=== PATIENT | male | born 1945 | race Caucasian/White ===

== ENCOUNTER 2018-01-01 02:13 | Inpatient (IN) | payer OTHER ==
[~2018-01-01] VITALS: Ht 172.7 cm; Wt 78.0 kg
[2018-01-01] VITALS (9 sets, daily range): BP systolic 115–165; BP diastolic 51–98
--- NOTE | 2018-01-01 02:13 | NUR ---
PT UMA[facility] BLS. TAKEN TO BED 10
[2018-01-01] MEDS ORDERED: NACL 0.9% 1,000 ML IV ONE (02:20)
--- NOTE | 2018-01-01 02:23 | NUR ---
Dr. Nieto evaluating patient at bedside.
--- NOTE | 2018-01-01 02:30 | NUR ---
UMAIR EVANS [place] FOR C/O URINARY RETENTION PER STAFF. NO N/V/D; SKIN IS PINK/WARM/DRY; AAOX4; LUNGS CLEAR BL; HR EVEN AND REGULAR; NO FEVER, CP, SOB, OR COUGH AT THIS TIME; NO PAIN NOTED AT THIS TIME. PATIENT POSITIONED FOR COMFORT; HOB ELEVATED; BEDRAILS UP X2; BED DOWN.
[2018-01-01 02:37] LABS: HEMATOCRIT 39.3 % (36-52); HEMOGLOBIN 13.1 g/dL (12.0-18.0); MEAN CORPUSCULAR HEMOGLOBIN 31 pg (27-31); MEAN CORPUSCULAR HGB CONC 34 g/dL (33-37); MEAN CORPUSCULAR VOLUME 91.3 fL (80-94); PLATELET COUNT (AUTO) 294 K/uL (140-450); RED CELL DISTRIBUTION WIDTH 12.9 % (11.6-13.7); WHITE BLOOD COUNT (AUTO) 12.9 K/uL (4.8-10.8)
[2018-01-01 02:38] LABS: BASOPHILS # (AUTO) 0.1 K/uL (0.00-0.22); BASOPHILS % (AUTO) 0.5 % (0.0-2.0); LYMPHOCYTES # (AUTO) 1.5 K/uL (2.0-11.5); LYMPHOCYTES % (AUTO) 11.3 % (20.5-51.1); MONOCYTES # (AUTO) 1.7 K/uL (0.8-1.0); MONOCYTES % (AUTO) 13.3 % (1.7-9.3); NEUTROPHILS # (AUTO) 9.6 K/uL (1.8-7.7); NEUTROPHILS % (AUTO) 74.9 % (42.2-75.2)
[2018-01-01] MEDS ORDERED: NACL 0.9% 500 ML IV ONE (02:40)
[2018-01-01 02:56] LABS: APPEARANCE,URINE SL CLOUDY (CLEAR); BILIRUBIN,URINE NEGATIVE (NEGATIVE); BLOOD, URINE 2+ (NEGATIVE); COLOR,URINE YELLOW (YELLOW); LEUKOCYTE ESTERASE ,URINE NEGATIVE (NEGATIVE); NITRITE, URINE NEGATIVE (NEGATIVE); UGLUCOSE TRACE (NEGATIVE)
[2018-01-01] MEDS ORDERED: ALPOS OP (03:01)
[2018-01-01] MEDS ORDERED: HYDR-5122 PO (03:01)
[2018-01-01] MEDS ORDERED: DIVA125E1 PO (03:01)
[2018-01-01] MEDS ORDERED: LISI5TAB18 PO (03:01)
[2018-01-01] MEDS ORDERED: HYDR100T79 PO (03:01)
[2018-01-01] MEDS ORDERED: LACT10SO1 PO (03:01)
[2018-01-01] MEDS ORDERED: CLON0.1T42 PO (03:01)
[2018-01-01] MEDS ORDERED: INSU100S5 SUBQ (03:01)
[2018-01-01] MEDS ORDERED: MIRABULK PO (03:01)
[2018-01-01] MEDS ORDERED: KEP500L PO (03:01)
[2018-01-01] MEDS ORDERED: MULT-1305 PO (03:01)
[2018-01-01] MEDS ORDERED: ASPI81CT89 PO (03:01)
[2018-01-01] MEDS ORDERED: ATOR40TA PO (03:01)
[2018-01-01] MEDS ORDERED: METF850T PO (03:01)
[2018-01-01] MEDS ORDERED: ESOM40EC PO (03:01)
[2018-01-01 03:09] LABS: RBC,URINE 3-10 (FEW) /HPF (0-5); WBC,URINE 0-5 (RARE) /HPF (0-5)
[2018-01-01 03:12] LABS: ALBUMIN 3.3 g/dL (3.4-5.0); ANION GAP 28.9 (8-16); CARBON DIOXIDE 15.6 mmol/L (21-32); TOTAL BILIRUBIN 0.4 mg/dL (0.0-1.0)
[2018-01-01 03:18] LABS: CREATININE 10.7 mg/dL (0.7-1.3); POTASSIUM 8.5 mmol/L (3.5-5.1)
[2018-01-01] MEDS ORDERED: CALCIUM CHLORIDE 10% 100 MG/ML SYR IVP ONE (03:20)
[2018-01-01] MEDS ORDERED: SODIUM BICARBONATE 8.4% PFS 50 MEQ/50 ML SYR IVP ONE (03:20)
[2018-01-01] MEDS ORDERED: DEXTROSE 50% 50 ML SYR IVP ONE (03:20)
[2018-01-01] MEDS ORDERED: INSULIN REGULAR, HUMAN 100 UNIT/ML VIAL SUBQ ONE (03:20)
[2018-01-01] MEDS ORDERED: ASPIRIN 81 MG TAB.CHEW PO ONE (03:20)
[2018-01-01 03:35] LABS: PROTHROMBIN TIME 9.2 secs (10.8-13.4)
[2018-01-01] MEDS ORDERED: NACL 0.9% 2,000 ML IV ONE (03:35)
--- NOTE | 2018-01-01 04:00 | NUR ---
Patient appears to be resting comfortably in bed. Vital Signs within normal limits. Respirations even and unlabored.
[2018-01-01] MEDS ORDERED: NACL 0.9% 1,000 ML IV SCH (04:16)
[2018-01-01] MEDS ORDERED: ACETAMINOPHEN 325 MG TAB PO PRN (04:20)
[2018-01-01] MEDS ORDERED: ONDANSETRON 4 MG/2 ML VIAL IVP PRN (04:20)
--- NOTE | 2018-01-01 04:20 | NUR ---
[facility] HOUSE SUP JOSÉ MIGUEL SAID "TO HOLD PT IN ER UNTIL 7AM. THEN OK TO GO ICU." ER MD DR BUSH AND RIKY MA NOTIFIED.
[2018-01-01] MEDS ORDERED: SODIUM POLYSTYRENE 15 GM/60 ML UDBTL PO SCH ×4 (05:30→17:00)
[2018-01-01] MEDS: MORPHINE SULFATE 2 MG/ML SYR IVP PRN (05:40)
--- NOTE | 2018-01-01 05:40 | NUR ---
PT APPEARS AGITATED, MOANING AND MAKING NOISES. BP ELEVATED. PAIN MEDICATION GIVEN, PT TOLERATED WELL.
--- NOTE | 2018-01-01 07:15 | NUR ---
PER REPORT FROM RIKY MA " I ALREADY GAVE REPORT TO THE ICU NURSE SO SHE IS TAKING OVER CARE AT THIS TIME BECAUSE OF WHAT HAPPEN THIS MORNING, PATIENT CAN NOT BE TRANSFERRED TO ICU YET".
--- NOTE | 2018-01-01 07:16 | NUR ---
ICU NURSE RIKY LEBRON AT [facility] AT THIS TIME.
--- NOTE | 2018-01-01 07:25 | NUR ---
Received bedside report from ED nurse. patient is nonverbal and unable to follow commands. periods of calm and sleeping however arouse to stimuli. 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 skin intact and warm to touch. peripheral IV line to left forearm and patent & intact. Rush catheter in place and cloudy yellow urine draining noted. will continue to monitor and follow up on orders.
--- NOTE | 2018-01-01 08:20 | NUR ---
noted small amount of brown color soft stool and provide sahil area care gently. will continue to monitor.
--- NOTE | 2018-01-01 08:23 | NUR ---
Patient will be admitted to care of DR. WELLER . Admited to ICU . Will go to rooM #5. Belongings list completed. Report to RIKY LEBRON .
[2018-01-01] MEDS: BLOOD GLUCOSE MONITORING 1 DEV DEV FS SCH ×4 (08:46→20:39)
--- NOTE | 2018-01-01 08:47 | NUR ---
Dr. Taylor in to see patient and will follow up on orders.
--- NOTE | 2018-01-01 08:51 | NUR ---
PATIENT HAS BEEN SCREENED AND CATEGORIZED HIGH NUTRITION RISK. PATIENT WILL BE SEEN WITHIN 1-2 DAYS OF ADMISSION. 01/01/18 01/02/[address]
--- NOTE | 2018-01-01 09:33 | NUR ---
Gabby Rebollar in to see patient and will follow up on orders.
[2018-01-01] MEDS ORDERED: SODIUM POLYSTYRENE 15 GM/60 ML UDBTL PO ONE (09:35)
[2018-01-01] MEDS ORDERED: SODIUM BICARBONATE 8.4% 50 MEQ/50 ML VIAL INJ SCH (09:44)
--- NOTE | 2018-01-01 09:51 | NUR ---
CM NOTE ADMISSION REVIEW DONE. INITIAL REVIEW FAXED TO [facility] [phone] YANET # [phone].
--- NOTE | 2018-01-01 10:15 | NUR ---
paged Dr. Pierre to clarify new orders and waiting a return call.
[2018-01-01] MEDS ORDERED: SODIUM BICARBONATE 8.4% PFS 50 MEQ/50 ML SYR IVP SCH ×2 (10:20→17:00)
--- NOTE | 2018-01-01 10:30 | NUR ---
clarified new orders with Dr. Pierre and total 45gm of kayexalate to be given. informed pharmacy.
[2018-01-01 10:37] LABS: ANION GAP 25.3 (8-16); CARBON DIOXIDE 16.5 mmol/L (21-32); TOTAL BILIRUBIN 0.4 mg/dL (0.0-1.0)
[2018-01-01 10:43] LABS: CREATININE 9.9 mg/dL (0.7-1.3)
[2018-01-01 10:44] LABS: POTASSIUM 7.8 mmol/L (3.5-5.1)
--- NOTE | 2018-01-01 10:55 | NUR ---
Dr. Taylor was notified of abnormal lab result and will follow up on orders.
[2018-01-01] MEDS: SODIUM BICARBONATE 8.4% 50 MEQ in NACL 0.9% 1,000 ML IV SCH ×2 (10:59→17:22)
[2018-01-01] MEDS: hydrALAZINE 20 MG/ML VIAL IVP PRN (11:07)
--- NOTE | 2018-01-01 11:27 | NUR ---
called radiology dept to informed that CXR result still pending. will continue to follow up.
--- NOTE | 2018-01-01 12:09 | NUR ---
Dr. Elliott in to see patient for exam. will follow up on orders.
--- NOTE | 2018-01-01 12:10 | NUR ---
called Radiology dept and still waiting for CXR result.
--- NOTE | 2018-01-01 12:36 | NUR ---
paged Dr. Elliott regarding CXR result still pending and kayexalate was not able to be given yet as well as tube feeding as ordered. waiting for call back. charge nurse aware.
--- NOTE | 2018-01-01 12:54 | NUR ---
verified the NG-tube placement by 3 nurses at bedside and notified Dr. Elliott. Dr. Elliott stated that okay to use NG-tube. will follow up on orders.
--- NOTE | 2018-01-01 13:00 | NUR ---
Wound nurse came in for evaluation due to jaspal score 12. skin intact and will continue with current plan of care.
--- NOTE | 2018-01-01 13:12 | NUR ---
started tube feeding at 10ml/hr with nepro as ordered and will continue to monitor.
--- NOTE | 2018-01-01 13:22 | NUR ---
WOUND CARE EVALUATION NOTE: REASON FOR EVALUATION: LOW LAUREN SCORE SKIN ASSESSMENT DONE WITH PRIMARY RN ON THIS 72 Y/O MALE PT FROM [facility] TO [facility] WITH CHIEF COMPLAIN OF NO URINE OUTPUT X 16 HOURS, NO OTHER PAST MEDICAL HX AVAILABLE AT THIS TIME. SKIN IS WARM AND DRY, NGT I PLACE, HOB ELEVATED. BLE FEW HAIR GROWTH, NO EDEMA. DORSAL PEDAL PULSES PRESENT AND NORMAL. CAPILLARY REFILLED < 2 SEC. X 10 TOES. F/C PATENT WITH MODERATE AMOUNT OF FER COLOR OUTPUT NOTICE. NO REDNESS, FEW OLD SCRATCH GERMAN TO R/L UPPER THIGHS, SKIN INTACT. PLAN OF CARE DISCUSSED WITH PRIMARY RN. RECOMMENDATIONS -OFFLOAD BILATERAL HEELS BY PLACING PILLOWS UNDER CALVES UNLESS OTHERWISE CONTRAINDICATED -PRESSURE REDISTRIBUTION SURFACE THERAPY -TURN AND REPOSITION Q2H, OFFLOAD SACRALCOCCYX AND BUTTOCKS BY TURNING RIGHT AND LEFT -CONTINUE TO FOLLOW RD RECOMMENDATIONS ALL ABOVE RECOMMENDATIONS DISCUSSED WITH PRIMARY RN.
--- NOTE | 2018-01-01 13:54 | NUR ---
[employer] Note: Per Luz from [facility] , patient is on a 7 day bed hold and is one of their detention patients. Luz stated patient does not have an existing Advance Directive and is not able to make his own medical decisions. Per Luz, patient's niece Liv is patient's family's spokesperson. Luz stated patient's son Boyd works long hours, therefore is not always available. Luz reported Liv consults with Boyd and the rest of family and she verbalizes their medical decisions.
--- NOTE | 2018-01-01 14:39 | NUR ---
Received a call from patient's (Lisa Henderson) and niece. Given updated of patient's condition and per patient's , unknown for the date of pneumococcal and influenza vaccination at this time and will let us know once she found out, as well as she reported that patient was able to eat pureed diet and wheelchair bound, unable to follow commands, only able to verbalize "NO" prior to this hospitalization.
--- NOTE | 2018-01-01 15:04 | NUR ---
01/01/18 RD INITIAL ASSESSMENT COMPLETED PLEASE REFER TO NUTRITION ASSESSMENT UNDER CARE ACTIVITY FOR ESTIMATED NUTRITIONAL NEEDS. RECOMMEND NEPRO WITH CARB STEADY AT 40 ML/HR WATER FLUSH 170 Q4H. -THIS WILL PROVIDE 1750 KCAL AND 78 G PROTEIN AND 1750 ML WATER. THIS WILL PROVIDE 100% OF PTS ESTIMATED ENERGY AND PROTEIN NEEDS. 3. RD TO FOLLOW-UP 2-3 DAYS, HIGH RISK BRIELLE MATSON, RD
[2018-01-01 15:09] LABS: ANION GAP 29.2 (8-16); CARBON DIOXIDE 15.7 mmol/L (21-32)
[2018-01-01 15:36] LABS: CREATININE 9.8 mg/dL (0.7-1.3); POTASSIUM 7.9 mmol/L (3.5-5.1)
--- NOTE | 2018-01-01 15:38 | NUR ---
paged Dr. Elliott regarding critical lab result and waiting a return call.
--- NOTE | 2018-01-01 16:01 | NUR ---
paged Dr. Elliott again and still waiting for call back.
--- NOTE | 2018-01-01 16:20 | NUR ---
PAGED DR. VANN AGAIN REGARDING CRITICAL LAB RESULT. STILL WAITING A RETURN CALL AND CHARGE NURSE AWARE.
--- NOTE | 2018-01-01 16:24 | NUR ---
RECEIVED A CALL FROM DR. VANN AND NOTIFIED OF CRITICAL LAB RESULT INCLUDING K 7.9, BUN 129, Cr 9.8. NO NEW ORDER AT THIS TIME AND DR. VANN STATED THAT NOTIFY DR. FOX WELL. PAGED DR. FOX AND WAITING FOR CALL BACK.
--- NOTE | 2018-01-01 16:30 | NUR ---
CALLED BACK AND WAS NOTIFIED OF CRITICAL LAB RESULT. RECEIVED NEW ORDERS AND WILL FOLLOW UP ON ORDERS.
--- NOTE | 2018-01-01 17:18 | NUR ---
Noted gastric residual 70ml from NG-tube and Large amount of brown color loose stool. Provide sahil care gently.
--- NOTE | 2018-01-01 17:51 | NUR ---
paged Dr. Elliott regarding still have no code status for the patient and waiting a return call.
--- NOTE | 2018-01-01 17:58 | NUR ---
Dr. Paulino for Dr. Elliott called back and notified of no code status yet. Dr. Paulino stated that he is covering for Dr. Elliott but he does not know this patient and can't decide tonight and call Dr. Elliott in the morning for code status. charge nurse aware and it will be endorsed to next shift.
--- NOTE | 2018-01-01 18:26 | NUR ---
NOTED LARGE AMOUNT OF BROWN LOOSE STOOL AND PROVIDED ALEX CARE GENTLY. WILL CONTINUE TO MONITOR.
--- NOTE | 2018-01-01 19:19 | NUR ---
RECEIVED REPORT FROM AM SHIFT. AFEBRILE. PT NONVERBAL. UNABLE TO FOLLOW COMMANDS. NONTRACKING. ON ROOM AIR. LUNG SOUNDS CLEAR. ST ON MONITOR. NGT TO L NARE ON NEPRO AT 10ML/HR. 70 ML RESIDUAL NOTED. BILAT SCDS. F/C IN PLACE. URINE DRAINING TO GRAVITY. LEFT FA IV 20 G WITH SODIUM BICARB @ 150 ML/HR. SITE PATENT. NO SIGNS OF ACUTE DISTRESS NOTED. BED IN LOWEST POSITION. CALL LIGHT WITHIN REACH. WILL CONTINUE TO MONITOR.
--- NOTE | 2018-01-01 20:45 | NUR ---
PT HAD LARGE LIQUID BM AT THIS TIME. ALEX CARE PROVIDED.
[2018-01-01 22:37] LABS: ANION GAP 31.6 (8-16); CARBON DIOXIDE 16.4 mmol/L (21-32)
[2018-01-01 22:43] LABS: CREATININE 10.1 mg/dL (0.7-1.3)
--- NOTE | 2018-01-01 23:35 | NUR ---
PT HAD LARGE WATERY BM AT THIS TIME. PERICARE PROVIDED. REPOSITIONED TO LEFT SIDE.
[2018-01-02] VITALS (11 sets, daily range): BP systolic 130–162; BP diastolic 54–88
[2018-01-02] MEDS: SODIUM BICARBONATE 8.4% 50 MEQ in NACL 0.9% 1,000 ML IV SCH ×2 (00:19→08:24)
--- NOTE | 2018-01-02 03:20 | NUR ---
PT HAD LARGE BM AT THIS TIME.
--- NOTE | 2018-01-02 04:04 | NUR ---
NO RESIDUAL NOTED AT THIS TIME. INCREASE FEED TO 20 ML/HR.
--- NOTE | 2018-01-02 05:12 | NUR ---
LAB AT BEDSIDE AT THIS TIME
[2018-01-02 06:02] LABS: BASOPHILS % (AUTO) 0.1 % (0.0-2.0); LYMPHOCYTES # (AUTO) 0.6 K/uL (2.0-11.5); LYMPHOCYTES % (AUTO) 6.4 % (20.5-51.1); MEAN CORPUSCULAR HEMOGLOBIN 30 pg (27-31); MEAN CORPUSCULAR HGB CONC 33 g/dL (33-37); MEAN CORPUSCULAR VOLUME 91.3 fL (80-94); MONOCYTES # (AUTO) 1.1 K/uL (0.8-1.0); MONOCYTES % (AUTO) 10.9 % (1.7-9.3); NEUTROPHILS # (AUTO) 8.3 K/uL (1.8-7.7); NEUTROPHILS % (AUTO) 82.6 % (42.2-75.2); PLATELET COUNT (AUTO) 194 K/uL (140-450); RED BLOOD CELL COUNT(AUTO) 3.94 MIL/uL (4.20-6.10); RED CELL DISTRIBUTION WIDTH 14.2 % (11.6-13.7); WHITE BLOOD COUNT (AUTO) 10.1 K/uL (4.8-10.8)
[2018-01-02] MEDS: BLOOD GLUCOSE MONITORING 1 DEV DEV FS SCH ×4 (06:33→21:26)
[2018-01-02 06:36] LABS: ALBUMIN 2.7 g/dL (3.4-5.0); ANION GAP 26.1 (8-16); CARBON DIOXIDE 20.8 mmol/L (21-32); POTASSIUM 4.9 mmol/L (3.5-5.1); TOTAL BILIRUBIN 0.4 mg/dL (0.0-1.0)
[2018-01-02 07:16] LABS: CREATININE 9.8 mg/dL (0.7-1.3); PHOSPHORUS 9.7 mg/dL (2.5-4.9)
--- NOTE | 2018-01-02 07:30 | NUR ---
RECEIVED PT FROM PM NURSE, PT OPENS EYES SPONTANEOUSLY BUT UNABLE TO FOLLOW COMMANDS. NONVERBAL, ON ROOM AIR, O2 SATS 98-100%, PT HAS NG TUBE TO LEFT NARES WITH NEPRO AT 20 MLS/HR. PT ALSO HAVE IV TO LEFT FOREARM #20 RUNNING SODIUM BICARBONATE 50 MEQ IN NS 1000 RUNNING AT 150 MLS/HR. SITE INTACT AND PATENT. PT ALSO HAS STUBBS CATH WITH SMALL AMOUNT OF YELLOW URINE NOTED. SCDS IN PLACE. RIGHT SIDE WEAKNESS NOTED. HOB ELEVATED 30 DEGREES WITH LOW BED POSITION, WILL CONTINUE TO MONITOR.
--- NOTE | 2018-01-02 07:31 | NUR ---
ENDORSED CARE TO INCOMING SHIFT FOR CONTINUITY OF CARE. NO SIGNS OF ACUTE DISTRESS NOTED.
--- NOTE | 2018-01-02 08:14 | NUR ---
TUBE FEEDING RESIDUAL CHECKED 30 MLS BUT COFFEE GROUND NOTED FROM NG TUBE WHILE CHECKING RESIDUAL. CHARGE NURSE AWARE, PAGED DR. VANN.
--- NOTE | 2018-01-02 08:20 | NUR ---
DR. VANN CALLED BACK, UPDATED PT STATUS, PER DR. VANN, HOLD TUBE FEEDING , RESTART 6 HOURS LATER. CHECK HGB AND HCT Q8HRS. CHARGE NURSE MADE AWARE.
[2018-01-02] MEDS ORDERED: PANTOPRAZOLE 40 MG INJ VIAL IVP SCH (09:46)
[2018-01-02] MEDS: NACL 0.45% 1,000 ML IV SCH ×3 (10:10→17:16)
--- NOTE | 2018-01-02 12:00 | NUR ---
TURNED AND REPOSITIONED PT. NO S/S OF RESPIRATORY DISTRESS NOTED.
--- NOTE | 2018-01-02 14:00 | NUR ---
RESTARTED TUBE FEEDING, PLACEMENT CHECKED, RESIDUAL CHECKED ZERO.
[2018-01-02 15:41] LABS: BASOPHILS % (AUTO) 0.1 % (0.0-2.0); HEMATOCRIT 34.2 % (36-52); HEMOGLOBIN 11.5 g/dL (12.0-18.0); LYMPHOCYTES # (AUTO) 0.6 K/uL (2.0-11.5); MEAN CORPUSCULAR HEMOGLOBIN 30 pg (27-31); MEAN CORPUSCULAR HGB CONC 34 g/dL (33-37); MEAN CORPUSCULAR VOLUME 89.9 fL (80-94); MONOCYTES # (AUTO) 1.2 K/uL (0.8-1.0); MONOCYTES % (AUTO) 11.8 % (1.7-9.3); NEUTROPHILS # (AUTO) 8.7 K/uL (1.8-7.7); NEUTROPHILS % (AUTO) 82.1 % (42.2-75.2); PLATELET COUNT (AUTO) 197 K/uL (140-450); WHITE BLOOD COUNT (AUTO) 10.6 K/uL (4.8-10.8)
[2018-01-02] MEDS: CALCIUM ACETATE 667 MG TAB PO SCH (16:40)
--- NOTE | 2018-01-02 16:40 | NUR ---
DR. VANN CALLED IN, NOTIFIED HIM H/H, CLARIFIED WITH HIM REGRADING ORDER H/H Q 8 HRS, PER DR. VANN, PT DOES NOT NEED CHECK H/H Q8HRS. CHARGE NURSE AWARE. ALSO INFORMED HIM SAID IT IS OK TO TRANSFER PT TO TELE, AGREED.
--- NOTE | 2018-01-02 18:05 | NUR ---
TURNED AND REPOSITIONED PT. NO S/S OF RESPIRATORY DISTRESS NOTED.
--- NOTE | 2018-01-02 19:20 | NUR ---
RECEIVED REPORT FROM DAY SHIFT RN FOR CONTINUITY OF CARE. PT IS UNABLE TO MAKE NEEDS KNOWN, UNABLE TO FOLLOW COMMANDS. PT HAS +1 PITTING EDEMA TO BILATERAL ANKLES, SKIN IS INTACT. BREATHS ARE UNLABORED AND EQUAL WITH CLEAR LUNG SOUNDS. PT HAS A 20G IV TO LEFT FOREARM INFUSING 0.45%NS@150ML/HR, AND A 22G IV TO RIGHT HAND SL, BOTH ASYMPTOMATIC WITH GOOD BLOOD RETURN. PT HAS STUBBS CATHETER DRAINING TO GRAVITY, NGT IN PLACE WITH TF NEPRO AT A RATE OF 20ML/HR. VITAL SIGNS WITHIN NORMAL LIMITS. PT STABLE, NO SIGNS OF DISTRESS NOTED AT THIS TIME.
--- NOTE | 2018-01-02 19:25 | NUR ---
NO TUBE FEEDING RESIDUAL NOTED, INCREASED TUBE FEEDING TO 30ML/HR.
--- NOTE | 2018-01-02 21:20 | NUR ---
PT BLOOD SUGAR IS 125, NO COVERAGE INSULIN NEEDED.
--- NOTE | 2018-01-02 23:00 | NUR ---
CHANGED TUBE FEEDING AND CHECKED RESIDUAL. NO RESIDUAL NOTED, INCREASED TUBE FEEDING TO 40ML/HR ORDERED.
[2018-01-03] VITALS: BP 103/61
--- NOTE | 2018-01-03 00:32 | NUR ---
VITAL SIGNS WITHIN NORMAL LIMITS. PT STABLE, NO SIGNS OF DISTRESS NOTED AT THIS TIME.
--- NOTE | 2018-01-03 02:32 | NUR ---
PT TOLERATING FEEDING WELL. PT HAD A SMALL SOFT BM AND WAS CLEANED AND REPOSITIONED AGAIN.
[2018-01-03 04:00] VITALS: BP 148/73
--- NOTE | 2018-01-03 04:15 | NUR ---
VITAL SIGNS WITHIN NORMAL LIMITS. PT STABLE, NO SIGNS OF DISTRESS NOTED AT THIS TIME.
[2018-01-03] MEDS: NACL 0.45% 1,000 ML IV SCH ×2 (05:57→13:13)
[2018-01-03] MEDS: INSULIN LISPRO SLIDING SCALE 100 UNITS/ML VIAL SUBQ PRN ×3 (06:34→20:00)
[2018-01-03] MEDS: BLOOD GLUCOSE MONITORING 1 DEV DEV FS SCH ×4 (06:35→20:03)
--- NOTE | 2018-01-03 07:10 | NUR ---
TRANSFERRED PT TO TELE FLOOR AND ENDORSED TO DAY SHIFT RN [place] FOR CONTINUITY OF CARE. TOOK TF NEPRO AND 0.45%NS. PT STABLE.
--- NOTE | 2018-01-03 07:11 | NUR ---
RECEIVED REPORT FROM RIKY BEVERLY AT BEDSIDE FOR CONTINUITY OF CARE. PT IS UNABLE TO MAKE NEEDS KNOWN, UNABLE TO FOLLOW COMMANDS. PT HAS +1 PITTING EDEMA TO BILATERAL ANKLES, SKIN IS INTACT. BREATHS ARE UNLABORED AND EQUAL WITH CLEAR LUNG SOUNDS. PT HAS A 22G IV TO RIGHT HAND INFUSING 1/2 NS @ 150 ML/HR. PT HAS STUBBS CATHETER DRAINING TO GRAVITY, NGT IN PLACE WITH TF NEPRO AT A RATE OF 40ML/HR. VITAL SIGNS WITHIN NORMAL LIMITS. PT STABLE, NO SIGNS OF DISTRESS NOTED AT THIS TIME. UPDATED BOARD. SAFETY AND SEIZURE PRECAUTION IN PLACE, CALL LIGHT WITHIN REACH, BED ON LOWEST POSITION, BED ALARM ON, WILL CONTINUE TO MONITOR PATIENT.
[2018-01-03 07:15] VITALS: BP 151/78
[2018-01-03 07:22] LABS: BASOPHILS # (AUTO) 0.1 K/uL (0.00-0.22); BASOPHILS % (AUTO) 0.5 % (0.0-2.0); EOSINOPHILS # (AUTO) 0.2 K/uL (0-0.4); EOSINOPHILS % (AUTO) 1.5 % (0.0-4.0); HEMATOCRIT 32.9 % (36-52); HEMOGLOBIN 10.9 g/dL (12.0-18.0); LYMPHOCYTES % (AUTO) 8.6 % (20.5-51.1); MEAN CORPUSCULAR HEMOGLOBIN 30 pg (27-31); MEAN CORPUSCULAR HGB CONC 33 g/dL (33-37); MEAN CORPUSCULAR VOLUME 90.3 fL (80-94); MONOCYTES % (AUTO) 9.1 % (1.7-9.3); NEUTROPHILS % (AUTO) 80.3 % (42.2-75.2); PLATELET COUNT (AUTO) 186 K/uL (140-450); RED BLOOD CELL COUNT(AUTO) 3.64 MIL/uL (4.20-6.10); RED CELL DISTRIBUTION WIDTH 14.2 % (11.6-13.7); WHITE BLOOD COUNT (AUTO) 11.2 K/uL (4.8-10.8)
[2018-01-03 07:28] LABS: ALBUMIN 2.5 g/dL (3.4-5.0); ANION GAP 24.5 (8-16); CARBON DIOXIDE 20.8 mmol/L (21-32); PHOSPHORUS 8.9 mg/dL (2.5-4.9); POTASSIUM 4.3 mmol/L (3.5-5.1); TOTAL BILIRUBIN 0.3 mg/dL (0.0-1.0)
[2018-01-03 07:59] LABS: CREATININE 9.8 mg/dL (0.7-1.3)
[2018-01-03] MEDS: CALCIUM ACETATE 667 MG TAB PO SCH ×3 (09:19→16:19)
[2018-01-03] MEDS: PANTOPRAZOLE 40 MG INJ VIAL IVP SCH (09:19)
--- NOTE | 2018-01-03 09:19 | NUR ---
ORDERED MEDICATION GIVEN VIA NGTUBE, NGTUBE AUSCULTATED FOR PLACEMENT, 10 ML OF RESIDUAL NOTED. ORDERED MEDICATION GIVEN WITH 30 ML OF WATER. PATIENT TOLERATED IT WELL. PATIENT RESTLESS AND CALLING FOR "A MA, A MA." SAFETY AND SEIZURE PRECAUTION IN PLACE, CALL LIGHT WITHIN REACH, WILL CONTINUE TO MONITOR PATIENT.
[2018-01-03] MEDS: MORPHINE SULFATE 2 MG/ML SYR IVP PRN (09:24)
--- NOTE | 2018-01-03 09:24 | NUR ---
PATIENT AGITATED, GROANING AND MOANING WITH FACIAL GRIMACING AND THRASHING. YELLING "A MA, A MA, A MA." PRN PAIN MEDICATION GIVEN. PATIENT TOLERATED IT. SAFETY AND SEIZURE PRECAUTION IN PLACE, CALL LIGHT WITHIN REACH, WILL CONTINUE TO MONITOR PATIENT.
--- NOTE | 2018-01-03 11:31 | NUR ---
BLOOD SUGAR 151, NO COVERAGE GIVEN BECAUSE PATIENT THRASHING AND YELLING "A MA, A MA" AFTER BLOOD GLUCOSE CHECK. WILL CONTINUE TO MONITOR PATIENT.
--- NOTE | 2018-01-03 11:52 | NUR ---
DANIEL NOTE CONCURRENT REVIEW FAXED TO [facility] [phone] YANET # [phone]. PER [facility] DANIEL HOLT IF PATIENT IS GOING BACK TO [facility], FOR [facility] [id number]. CYNDY LAN AWARE. Addendum: 01/03/18 at 1307 by Amarilys Escalona CM RECEIVED CALL FROM [facility] DANIEL HOLT WHO STATED THAT IF PATIENT GOING BACK TO [place], FOR [facility] AUTH# [id number].
[2018-01-03 12:00] VITALS: BP 138/75
--- NOTE | 2018-01-03 12:05 | NUR ---
ORDERED MEDICATION GIVEN VIA GTUBE, 5 ML OF RESIDUAL NOTED. ORDERED MEDICATION GIVEN WITH 30 ML OF WATER. PATIENT TOLERATED IT WELL. RECEIVED CALL FROM MARTÍN, CASE MANAGEMENT ABOUT DISCHARGE PLANNING. AUTHORIZATION FOR TRANSPORT WILL BE IN NOTES IF PATIENT IS DISCHARGED THIS WEEKEND. RN VERBALIZED UNDERSTANDING. Addendum: 01/03/18 at 1447 by Kamron Shah RN VIA NGTUBE, NOT GTUBE.
--- NOTE | 2018-01-03 12:08 | NUR ---
RECEIVED CALL FROM LAST MARKER. PATIENT WILL NEED HEMODIALYSIS. DR. PICKETT SPOKE WITH FAMILY, ORDERED RN TO OBTAIN CONSENT FOR TRE CATHETER PLACEMENT WITH DR. DEJESUS AND FOR HEMODIALYSIS AFTER. RN VERBALIZED UNDERSTANDING. PATIENT RESTING IN BED, NO SIGN OF DISTRESS OR SOB NOTED AT THE MOMENT, VS WNL. WILL CONTINUE TO MONITOR PATIENT.
--- NOTE | 2018-01-03 12:31 | NUR ---
CALLED [facility] [phone] TO GET A TELEPHONE CONSENT UNABLE TO LEAVE A MESSAGE IT SAYS MESSAGE IS FULL. CALLED AND LEFT A MESSAGE FOR PT'S SISTER ABDIRAHMAN
--- NOTE | 2018-01-03 12:45 | NUR ---
PATIENT MOANING AND GROANING, "A MA, A MA". CALMED PATIENT DOWN, ORAL CARE GIVEN AND PATIENT SUCTIONED. MOUTH MOISTURIZER GIVEN. PATIENT TOLERATED IT. SAFETY AND SEIZURE PRECAUTION IN PLACE, CALL LIGHT WITHIN REACH, WILL CONTINUE TO MONITOR PATIENT.
--- NOTE | 2018-01-03 13:33 | NUR ---
NEW ORDER IN TO DECREASE FLUID FROM 150 ML/HR TO 75 ML/HR. PATIENT CURRENTLY RESTING IN BED, NO SIGNS OF DISTRESS OR SOB NOTED ON ROOM AIR. SAFETY AND SEIZURE PRECAUTION IN PLACE, CALL LIGHT WITHIN REACH, WILL CONTINUE TO MONITOR PATIENT.
--- NOTE | 2018-01-03 13:40 | NUR ---
CALLED GOLDEN PETER AT [phone] TO GET CONSENT FOR TRE CATH PLACEMENT AND HEMODIALYSIS FOR PATIENT. NO ANSWER. NO OPTION TO LEAVE VOICEMAIL. RN WILL FOLLOW UP.
--- NOTE | 2018-01-03 14:30 | NUR ---
PATIENT'S NIECE, KISHOR GAONA, CALLED. CONSENT FOR TRE CATHETER PLACEMENT AND HEMODIALYSIS OBTAINED OVER THE PHONE, JACINTO LAN, COSIGNED. IF FURTHER QUESTIONS, CAN CALL KISHOR IF BRITTANI IS NOT AVAILABLE, PHONE # [phone].
[2018-01-03 16:00] VITALS: BP 143/76
--- NOTE | 2018-01-03 16:17 | NUR ---
01/03/18 RD FOLLOW UP COMPLETED PLEASE REFER TO NUTRITION ASSESSMENT UNDER CARE ACTIVITY FOR ESTIMATED NUTRITIONAL NEEDS. 1. CONTINUE NEPRO WITH CARB STEADY AT 40 ML/HR -THIS WILL PROVIDE 1750 KCAL AND 78 G PROTEIN AND 1750 ML WATER. THIS WILL PROVIDE 100% OF PTS ESTIMATED ENERGY AND PROTEIN NEEDS. 2. RECOMMEND WATER FLUSH 80 ML Q4H OR PER MD ORDER 3. RD TO FOLLOW-UP 2-3 DAYS, HIGH RISK BRIELLE MATSON, RD
[2018-01-03] MEDS ORDERED: CALCIUM ACETATE 667 MG TAB PO SCH (17:00)
--- NOTE | 2018-01-03 17:40 | NUR ---
CALLED RADIOLOGY FOR ULTRA SOUND FOR VASCULAR GUIDED ACCESS FOR TRE CATHETER PLACEMENT BY DR. DEJESUS. WILL WAIT FOR THEM TO COME TO BEGIN PROCEDURE.
--- NOTE | 2018-01-03 18:25 | NUR ---
DR DEJESUS IN TO PLACE TRE CATHETER. PATIENT TOLERATED IT WELL. POST PROCEDURE BP 120/77, HR 115, O2 94% ON RA, RR 20. WILL CONTINUE TO MONITOR PATIENT.
--- NOTE | 2018-01-03 18:45 | NUR ---
DR MURILLO VALVE INSERTER CALLED AND ORDERED HD FOR TOMORROW AND DIALYSIS NURSE TO CALL FOR ORDER. CALLED AND NOTIFIED VLADIMIR DIALYSIS NURSE THAT PATIENT HAS DIALYSIS ORDER FOR TOMORROW
--- NOTE | 2018-01-03 18:47 | NUR ---
XRAY IN TO DO XRAY FOR TRE CATHETER PLACEMENT. WILL WAIT FOR RESULTS
--- NOTE | 2018-01-03 19:31 | NUR ---
REPORT GIVEN AT BEDSIDE TO GEOGRAPHIC INFORMATION SYSTEMS ENGINEER NURSE FOR CONTINUITY OF CARE. PATIENT IN STABLE CONDITION.
--- NOTE | 2018-01-03 19:32 | NUR ---
RECEIVED PATIENT LYING ON BED WITH NG-TUBE AND STUBBS CATHETER IN PLACE. FALL PRECAUTION APPLIED. CALL LIGHT WITHIN REACH.
--- NOTE | 2018-01-03 19:45 | NUR ---
PATIENT PULL OUT HIS IV AND PAGE DR. SON ON-CALL MD. ORDERED HAND MITTEN FOR BOTH HANDS. CHANGED PATIENT AND DO SPONGE BATH AND MOUTH CARE. REPOSITIONED PATIENT AND PLACE IN SEMI-FOWLERS POSITION. CALL LIGHT WITHIN REACH. NO SIGN OF DISTRESS NOTED.
[2018-01-03 20:00] VITALS: BP 133/70
--- NOTE | 2018-01-03 23:00 | NUR ---
RESIDUAL CHECKED 5ML. POSITION PATIENT IN SEMI-FOWLERS POSITION. SCD IN PLACE. NO S/S OF DISTRESS NOTED. WILL CONTINUE TO MONITOR.
[2018-01-04] VITALS: BP 129/78
--- NOTE | 2018-01-04 00:05 | NUR ---
V/S TAKEN AND RECORDED. PATIENT WAS AWAKE AND HAND MITTEN ON BOTH HANDS. PATIENT SEEN YELLING AND SCREAMING AT TIMES. NO S/S OF DISTRESS NOTED AT THIS TIME. WILL CONTINUE TO MONITOR.
[2018-01-04] MEDS: MORPHINE SULFATE 2 MG/ML SYR IVP PRN (00:09)
[2018-01-04] MEDS: NACL 0.45% 1,000 ML IV SCH ×2 (00:22→08:31)
[2018-01-04 04:00] VITALS: BP 135/73
--- NOTE | 2018-01-04 04:15 | NUR ---
SEEN PATIENT RESTING ON BED. V/S TAKEN AND RECORDED. NO S/S OF DISTRESS NOTED. WILL CONTINUE TO MONITOR.
[2018-01-04] MEDS: INSULIN LISPRO SLIDING SCALE 100 UNITS/ML VIAL SUBQ PRN ×4 (06:34→20:36)
[2018-01-04] MEDS: BLOOD GLUCOSE MONITORING 1 DEV DEV FS SCH ×4 (06:35→20:37)
[2018-01-04 07:26] LABS: BASOPHILS % (AUTO) 0.1 % (0.0-2.0); EOSINOPHILS % (AUTO) 0.2 % (0.0-4.0); HEMATOCRIT 30.3 % (36-52); HEMOGLOBIN 10.2 g/dL (12.0-18.0); LYMPHOCYTES # (AUTO) 0.8 K/uL (2.0-11.5); LYMPHOCYTES % (AUTO) 4.4 % (20.5-51.1); MEAN CORPUSCULAR HEMOGLOBIN 30 pg (27-31); MEAN CORPUSCULAR HGB CONC 34 g/dL (33-37); MONOCYTES # (AUTO) 1.2 K/uL (0.8-1.0); MONOCYTES % (AUTO) 6.7 % (1.7-9.3); NEUTROPHILS # (AUTO) 15.9 K/uL (1.8-7.7); NEUTROPHILS % (AUTO) 88.6 % (42.2-75.2); PLATELET COUNT (AUTO) 151 K/uL (140-450); RED BLOOD CELL COUNT(AUTO) 3.36 MIL/uL (4.20-6.10)
--- NOTE | 2018-01-04 07:30 | NUR ---
RECEIVED PT REPORT FROM MEDICINAL PLANT PICKER RN AT BEDSIDE. PT IS AAOX1, UNABLE TO FOLLOW SIMPLE COMMANDS. PT HAS +1 PITTING EDEMA TO RIGHT ANKLE, SKIN IS INTACT. BREATHING IS UNLABORED AND WITH CLEAR LUNG SOUNDS. PT HAS A 22G IV TO RIGHT FA INFUSING 1/2 NS @ 75 ML/HR, PATENT AND ASYMPTOMATIC. PT HAS STUBBS CATHETER DRAINING TO CLEAR YELLOW URINE. NGT IN PLACE WITH NEPRO FORMULA AT RATE OF 40ML/HR. NO SIGNS OF DISTRESS NOTED AT THIS TIME. UPDATED BOARD. MITTENS ON, CIRCULATION IS GOOD. SAFETY AND SEIZURE PRECAUTION IN PLACE, CALL LIGHT WITHIN REACH, BED IN LOWEST POSITION, BED ALARM ON, WILL CONTINUE TO MONITOR PATIENT.
--- NOTE | 2018-01-04 07:30 | NUR ---
REPORT GIVEN TO AM SHIFT NURSE AT BEDSIDE FOR CONTINUITY OF CARE. PATIENT IN STABLE CONDITION
[2018-01-04 07:50] LABS: ALBUMIN 2.5 g/dL (3.4-5.0); ANION GAP 20.9 (8-16); CARBON DIOXIDE 22.8 mmol/L (21-32); MAGNESIUM 1.7 mg/dL (1.8-2.4); POTASSIUM 3.7 mmol/L (3.5-5.1); TOTAL BILIRUBIN 0.4 mg/dL (0.0-1.0)
[2018-01-04 07:59] LABS: CREATININE 9.5 mg/dL (0.7-1.3)
[2018-01-04] MEDS: PANTOPRAZOLE 40 MG INJ VIAL IVP SCH (08:15)
[2018-01-04] MEDS: CALCIUM ACETATE 667 MG TAB PO SCH ×3 (08:15→16:34)
[2018-01-04 08:45] VITALS: BP 118/62
--- NOTE | 2018-01-04 09:00 | NUR ---
NOTIFY DIALYSIS NURSE ABOUT DR FOX'S ORDER TO OBTAIN HD ORDER FOR TODAY.
--- NOTE | 2018-01-04 11:20 | NUR ---
SPOKE WITH DR VANN OVER THE PHONE, OK TO CONTINUE DEPAKOTE 250MG BID, HOLD ALL OTHER HOME MEDICATIONS.
[2018-01-04 12:00] VITALS: BP 147/75
[2018-01-04] MEDS ORDERED: MAG SULF 2000 MG/WATER PREMIX 50 ML IV ONE (14:25)
--- NOTE | 2018-01-04 14:25 | NUR ---
SPOKE WITH DR VANN OVER THE PHONE, REPORTED WBC 18.0, MG 1.7. ROCEPHIN 1G DAILY AND AZITHROMYCIN 500MG DAILY WAS ORDERED. 2G MG RIDER WAS ORDERED. ALSO REPORTED O2 DESAT TO 88% DURING DIALYSIS, 2L O2 WAS GIVEN VIA NC, O2 SAT RETURNED TO 96%. TEMP WAS 99.2 AXILLARY TYLENOL WAS GIVEN, TEMP RIGHT NOW IS 98.5 AXILLARY.
--- NOTE | 2018-01-04 15:05 | NUR ---
DIALYSIS WAS DONE, 1 L WAS REMOVED. PT IS IN STABLE CONDITION.
[2018-01-04 16:00] VITALS: BP 144/74
[2018-01-04] MEDS: AZITHROMYCIN 500 MG in DEXTROSE 5% 250 ML IV SCH (16:35)
[2018-01-04] MEDS: MAGNESIUM SULFATE 1GM in DEXTROSE 5% 100 ML PREMIX IV SCH ×3 (18:02→20:40)
--- NOTE | 2018-01-04 19:30 | NUR ---
REPORT GIVEN TO LEAK HUNTER NURSE AT BEDSIDE, PT IN STABLE CONDITION.
--- NOTE | 2018-01-04 19:35 | NUR ---
RECEIVED PATIENT RESTING COMFORTABLE ON BED WITH STUBBS CATHETER IN PLACE. SCD ON BOTH LEGS. NG- TUBE FEEDING RUNNING @40 ML/HR. PATIENT IN SEMI-FOWLERS POSITION . PATIENT WITH LEFT HAND MITTEN RESTRAINT. FALL PRECAUTION APPLIED. WILL CONTINUE TO MONITOR.
[2018-01-04 20:00] VITALS: BP 135/79
[2018-01-04] MEDS: DIVALPROEX SPRINKLES 125 MG CAPDR PO SCH (21:00)
--- NOTE | 2018-01-04 21:00 | NUR ---
V/S TAKEN TAKEN AND RECORDED. SCHEDULE MEDICATION GIVEN TOLERATED WELL. NO S/S OF DISTRESS NOTED AT THIS TIME. PATIENT CLEANED AND REPOSITIONED TO HIS SIDE AND PLACE IN SEMI- FOWLERS POSITION. CALL LIGHT WITHIN REACH.
[2018-01-05] VITALS: BP 146/78
--- NOTE | 2018-01-05 00:05 | NUR ---
V/S TAKEN AND RECORDED. CHECK PATIENT HAND MITTEN FOR CIRCULATION NO SIGN OF INJURY TO AREA. CHECK RESIDUAL AT 10ML. PATIENT REPOSITIONED AND PLACE IN 3O DEGREE POSITION. CALL LIGHT WITHIN REACH. NO SIGN OF DISTRESS NOTED AT THIS TIME. WILL CONTINUE TO MONITOR.
[2018-01-05] MEDS: NACL 0.45% 1,000 ML IV SCH ×2 (03:02→16:22)
--- NOTE | 2018-01-05 03:03 | NUR ---
CHECKED PATIENT ASLEEP ON BED. NO S/S OF DISTRESS NOTED. FALL PRECAUTION APPLIED. WILL CONTINUE TO MONITOR.
[2018-01-05 04:00] VITALS: BP 146/76
--- NOTE | 2018-01-05 04:00 | NUR ---
START NG TUBE FEEDING NEPHRO RUNNING AT 40 ML/HR AND 170 FLUSH WATER Q4H. NO RESIDUAL AT THIS TIME. REPOSITIONED PATIENT AND PLACE IN FOWLERS POSITION. V/S TAKEN AND RECORDED. AM / MOUTH CARE DONE. NO SIGN OF DISTRESS NOTED AT THIS TIME. WILL CONTINUE TO MONITOR.
[2018-01-05] MEDS: BLOOD GLUCOSE MONITORING 1 DEV DEV FS SCH ×4 (06:23→20:36)
--- NOTE | 2018-01-05 07:20 | NUR ---
GAVE REPORT TO AM SHIFT NURSE AT BEDSIDE FOR CONTINUITY OF CARE. PATIENT IN STABLE CONDITION.
--- NOTE | 2018-01-05 07:30 | NUR ---
RECEIVED PT REPORT FROM TEST INSPECTION ENGINEER RN AT BEDSIDE. PT IS AAOX1, APHASIC, UNABLE TO FOLLOW SIMPLE COMMANDS. PT HAS +1 PITTING EDEMA TO RIGHT ANKLE AND RUE, SKIN IS INTACT. BREATHING IS EVEN AND UNLABORED. NO S/S OF DISTRESS. PT HAS A 22G IV TO RIGHT FA RUNNING 1/2 NS @ 75 ML/HR, PATENT AND ASYMPTOMATIC. PT HAS STUBBS CATHETER DRAINING TO CLEAR YELLOW URINE. NGT IN PLACE WITH NEPRO FORMULA AT RATE OF 40ML/HR. UPDATED BOARD. MITTEN ON LEFT HAND, CIRCULATION IS GOOD. SAFETY AND SEIZURE PRECAUTION IN PLACE, CALL LIGHT WITHIN REACH, BED IN LOWEST POSITION, BED ALARM ON, WILL CONTINUE TO MONITOR.
[2018-01-05 08:00] VITALS: BP 160/80
[2018-01-05] MEDS: PANTOPRAZOLE 40 MG INJ VIAL IVP SCH (08:40)
[2018-01-05] MEDS: DIVALPROEX SPRINKLES 125 MG CAPDR PO SCH ×2 (08:47→20:35)
[2018-01-05] MEDS: CALCIUM ACETATE 667 MG TAB PO SCH ×3 (08:47→16:25)
[2018-01-05 08:52] LABS: EOSINOPHILS # (AUTO) 0.5 K/uL (0-0.4); EOSINOPHILS % (AUTO) 2.8 % (0.0-4.0); HEMATOCRIT 30.6 % (36-52); HEMOGLOBIN 10.4 g/dL (12.0-18.0); LYMPHOCYTES # (AUTO) 1.2 K/uL (2.0-11.5); LYMPHOCYTES % (AUTO) 6.8 % (20.5-51.1); MEAN CORPUSCULAR HEMOGLOBIN 30 pg (27-31); MEAN CORPUSCULAR HGB CONC 34 g/dL (33-37); MEAN CORPUSCULAR VOLUME 88.9 fL (80-94); MONOCYTES # (AUTO) 1.7 K/uL (0.8-1.0); MONOCYTES % (AUTO) 9.7 % (1.7-9.3); NEUTROPHILS # (AUTO) 13.9 K/uL (1.8-7.7); NEUTROPHILS % (AUTO) 80.7 % (42.2-75.2); PLATELET COUNT (AUTO) 118 K/uL (140-450); RED BLOOD CELL COUNT(AUTO) 3.44 MIL/uL (4.20-6.10); RED CELL DISTRIBUTION WIDTH 13.8 % (11.6-13.7); WHITE BLOOD COUNT (AUTO) 17.2 K/uL (4.8-10.8)
[2018-01-05 09:14] LABS: ANION GAP 14.8 (8-16); CARBON DIOXIDE 24.5 mmol/L (21-32); POTASSIUM 3.3 mmol/L (3.5-5.1)
[2018-01-05 09:17] LABS: CREATININE 6.1 mg/dL (0.7-1.3)
--- NOTE | 2018-01-05 10:15 | NUR ---
PT RECEIVED BED BATH. PT TOLERATED WELL.
[2018-01-05] MEDS: KCL 20 MEQ/WATER INJ PREMIX 200 ML IV SCH ×2 (10:22→13:36)
[2018-01-05 11:30] VITALS: BP 172/89
[2018-01-05] MEDS ORDERED: hydrALAZINE 10 MG TAB NG PRN (11:40)
--- NOTE | 2018-01-05 11:45 | NUR ---
REPORTED BP 172/[address] VANN. ORDERS RECEIVED TO RESUME HOME MEDICATION OF LISINOPRIL, CLONIDINE, AND PRN HYDRALAZINE.
[2018-01-05] MEDS: hydrALAZINE 20 MG/ML VIAL IVP PRN (11:51)
[2018-01-05] MEDS: INSULIN LISPRO SLIDING SCALE 100 UNITS/ML VIAL SUBQ PRN ×2 (12:08→20:44)
[2018-01-05] MEDS: cloNIDine 0.1 MG TAB NG SCH ×2 (12:59→20:36)
[2018-01-05 16:00] VITALS: BP 142/71
[2018-01-05] MEDS: AZITHROMYCIN 500 MG in DEXTROSE 5% 250 ML IV SCH (16:28)
--- NOTE | 2018-01-05 16:30 | NUR ---
BLOOD SUGAR CHECKED, 197. PT IS AWAKE, OPENING EYES SPONTANEOUSLY. NO S/S OF DISTRESS NOTED.
--- NOTE | 2018-01-05 18:38 | NUR ---
SPOKE WITH DR MORGAN WHO IS PUMP SERVICER HELPER FOR DR VANN, DR SAID NO LABS IS NEEDED FOR TOMORROW.
--- NOTE | 2018-01-05 19:30 | NUR ---
ENDORSED PT TO CLIENT SUCCESS DIRECTOR RN. PT IS IN STABLE CONDITION.
--- NOTE | 2018-01-05 19:31 | NUR ---
RECEIVED REPORT FROM DAY SHIFT RN FOR CONTINUITY OF CARE. PT IS UNABLE TO MAKE NEEDS KNOWN, UNABLE TO FOLLOW COMMANDS. PT SKIN IS INTACT. BREATHS ARE UNLABORED AND EQUAL WITH CLEAR LUNG SOUNDS. PT HAS A 22G IV TO RIGHT FOREARM INFUSING 0.45%NS@75ML/HR, ASYMPTOMATIC WITH GOOD BLOOD RETURN. PT HAS STUBBS CATHETER DRAINING TO GRAVITY, NGT IN PLACE WITH TF NEPRO AT A RATE OF 40ML/HR AND FREE WATER FLUSH 170ML Q4H. VITAL SIGNS WITHIN NORMAL LIMITS. PT STABLE, NO SIGNS OF DISTRESS NOTED AT THIS TIME. BED IN LOWEST POSITION, CALL LIGHT WITHIN REACH. WILL CONTINUE TO MONITOR.
[2018-01-05 20:00] VITALS: BP 158/79
--- NOTE | 2018-01-05 20:45 | NUR ---
ADMINISTERED SCHEDULED MEDICATIONS, PT TOLERATED WELL. FLUSHED WITH WATER IN BETWEEN MEDICATION WITH MLS AND AFTER LAST MEDICATION WITH 50ML WATER. ALSO GAVE 2 UNITS OF HUMALOG INSULIN COVERAGE FOR BLOOD SUGAR OF 184.
--- NOTE | 2018-01-05 21:37 | NUR ---
CALLED [facility] AND TALKED TO VLADIMIR REGARDING HEMODIALYSIS ORDER FOR TOMORROW 01/06/18.
[2018-01-06] VITALS (7 sets, daily range): BP systolic 145–167; BP diastolic 64–88
--- NOTE | 2018-01-06 | NUR ---
VITAL SIGNS WITHIN NORMAL LIMITS. PT STABLE, NO SIGNS OF DISTRESS NOTED AT THIS TIME. BED IN LOWEST POSITION, BED ALARM ON. CALL LIGHT WITHIN REACH, WILL CONTINUE TO MONITOR.
[2018-01-06] MEDS: cloNIDine 0.1 MG TAB NG SCH ×3 (05:35→22:24)
--- NOTE | 2018-01-06 05:35 | NUR ---
ADMINISTERED SCHEDULED MEDICATION, PT TOLERATED WELL.
[2018-01-06] MEDS: INSULIN LISPRO SLIDING SCALE 100 UNITS/ML VIAL SUBQ PRN ×3 (06:45→22:27)
[2018-01-06] MEDS: BLOOD GLUCOSE MONITORING 1 DEV DEV FS SCH ×4 (07:04→21:50)
--- NOTE | 2018-01-06 07:25 | NUR ---
RECEIVED PT REPORT FROM CRM COORDINATOR RN AT BEDSIDE. PT IS AAOX1, APHASIC, UNABLE TO FOLLOW SIMPLE COMMANDS. PT HAS +1 PITTING EDEMA TO RLE AND RUE, SKIN IS INTACT. BREATHING IS EVEN AND UNLABORED, COUGH INTERMITTENTLY, NON PRODUCTIVE. NO S/S OF DISTRESS. PT HAS 22G IV TO RIGHT WRIST, SL, PATENT AND ASYMPTOMATIC. PT HAS STUBBS CATHETER DRAINING TO PALE YELLOW URINE. NGT IN PLACE WITH NEPRO FORMULA AT RATE OF 40ML/HR. UPDATED BOARD. MITTEN ON LEFT HAND, CIRCULATION IS GOOD. SAFETY AND SEIZURE PRECAUTION IN PLACE, CALL LIGHT WITHIN REACH, BED IN LOWEST POSITION, BED ALARM ON, WILL CONTINUE TO MONITOR.
--- NOTE | 2018-01-06 07:32 | NUR ---
ENDORSED PT TO DAY SHIFT RN FOR CONTINUITY OF CARE, PT IN STABLE CONDITION.
[2018-01-06] MEDS: LISINOPRIL 5 MG TAB NG SCH (07:57)
[2018-01-06] MEDS: DIVALPROEX SPRINKLES 125 MG CAPDR PO SCH ×2 (08:04→22:25)
[2018-01-06] MEDS: CALCIUM ACETATE 667 MG TAB PO SCH ×3 (08:05→17:27)
[2018-01-06] MEDS: PANTOPRAZOLE 40 MG INJ VIAL IVP SCH (08:05)
--- NOTE | 2018-01-06 09:35 | NUR ---
CALLED MS GILBERT REGARDING HEMODIALYSIS FOR TODAY, MS GILBERT STATED SHE IS AWARE.
--- NOTE | 2018-01-06 12:35 | NUR ---
SPOKE WITH DR VANN, REPORTED NO BM FOR 2DAYS. DR IS OK TO RESUME MIRALAX DAILY.
[2018-01-06] MEDS ORDERED: POLYETHYLENE GLYCOL 17 GM/PKT NG SCH (12:44)
--- NOTE | 2018-01-06 13:27 | NUR ---
LIQUEFIED PETROLEUM GASFITTER note (bedside swallow evaluation) 12:40-13:20. Bedside swallow evaluation completed, please see report for details. LIQUEFIED PETROLEUM GASFITTER provided pt with education regarding purpose of evaluation and rationale for recommendations; however, pt did not appear to be able to benefit from education provided. No family/caregivers present at this time. Recommend: 1) STRICT NPO (oral cares only) 2) continue alternative method(s) of nutrition/hydration/medication vs hospice/comfort measures, as appropriate 3) no further LIQUEFIED PETROLEUM GASFITTER intervention indicated at this time. Physician may reorder if pt's status improves/warrants, as appropriate. G-codes: [id number] [facility] NOMS level 1. LIQUEFIED PETROLEUM GASFITTER d/w RN (Mumtaz) prior to and following bedside swallow evaluation completion.
[2018-01-06] MEDS: AZITHROMYCIN 500 MG in DEXTROSE 5% 250 ML IV SCH (17:27)
--- NOTE | 2018-01-06 18:15 | NUR ---
CALLED PT 'S GOLDEN PETER, LEFT A MESSAGE ABOUT CONSENT REQUIRED FOR PERMACATH. Addendum: 01/06/18 at 2005 by Mumtaz Marsh RN CALLED BACK NUMBER WAS PROVIDED, WAITING FOR CALL BACK, ENDORSED TO PATTERN DRAFTER RN.
--- NOTE | 2018-01-06 18:30 | NUR ---
DIALYSIS NURSE IS HERE TO DO HEMODIALYSIS. PT IS IN STABLE CONDITION. NO S/S OF ACUTE DISTRESS.
--- NOTE | 2018-01-06 19:30 | NUR ---
RECEIVED PT STABLE CONDITION FROM AM NURSE, TELE PT. W/ ONGOING DIALYSIS ACCESS ON R IJ TRE CATH, ON BED REST,SLEEPING BUT OPEN EYES TO VERBAL STIMULI. HAS IV ACCESS ON R WRIST G 22.PT HAS BILATERAL EDEMA ON BOTH UE AND LE.W/ MITTENS ON LEFT HAND WITH GOOD BLOOD CIRCULATION. PT NPO BUT HAS NEPRO NGT FEEDING @ 40ML/HR, TOLERATING WELL.BED AT LOW POSITION, CALL LIGHT W/IN REACH. FREQUENT VISUAL CHECKS NEEDED. WILL CONTINUE TO MONITOR
--- NOTE | 2018-01-06 19:30 | NUR ---
REPORT GIVEN TO SALES CENTER ASSOCIATE RN AT BEDSIDE. PT IN STABLE CONDITION. PT STARTED WITH DIALYSIS.
--- NOTE | 2018-01-06 20:00 | NUR ---
PT ALSO HAVE SWOLLEN PENIS. NO DRAINAGE NOTED.
--- NOTE | 2018-01-06 20:15 | NUR ---
ABLE TO TALK TO MARY RN STERILIZER MACHINE OPERATOR. SHE SAID SURGERY FOR PLACEMENT OF TUNNELED HD CATH WILL NOT BE DONE MICHEL PER DR. DEJESUS DUE TO ELEVATED WBC.
--- NOTE | 2018-01-06 21:50 | NUR ---
HD DONE AT BEDSIDE. OUTPUT 1600 ML ER HD NURSE GILBERT. . NO UNTOWARD REACTION FROM HD.
--- NOTE | 2018-01-06 22:27 | NUR ---
BLOOD SUGAR WAS CHECKED RESULT 185. INSULIN COVERAGE GIVEN. PT ON CONTINUOS NGT FEEDING . TOLERATING WELL.
--- NOTE | 2018-01-07 00:30 | NUR ---
PT ASLEEP. NO S/S OF ANY DISCOMFORT NOR PAIN NOTED. WILL CONTINUE TO MONITOR.
[2018-01-07 01:01] VITALS: BP 158/83
--- NOTE | 2018-01-07 02:30 | NUR ---
MADE ROUNDS. PT IS ASLEEP. NO RESPIRATORY DISTRESS NOTED. NGT FEEDING INFUSING WELL.
[2018-01-07 04:23] VITALS: BP 166/83
[2018-01-07] MEDS: cloNIDine 0.1 MG TAB NG SCH ×3 (04:45→20:27)
--- NOTE | 2018-01-07 04:45 | NUR ---
BP 166/83, HR-108. SCHEDULED CATAPRES 0.1 MG GIVEN THROUGH NGT . WILL REASSESS BP @0615.
--- NOTE | 2018-01-07 05:30 | NUR ---
NEW NEPHRO BAG NGT FEEDING HANGED. PT TOLERATED FEEDING WELL, NO RESIDUAL NOTED.ELEVATED HEAD OF BED.
[2018-01-07] MEDS: BLOOD GLUCOSE MONITORING 1 DEV DEV FS SCH ×4 (06:07→20:59)
[2018-01-07] MEDS: INSULIN LISPRO SLIDING SCALE 100 UNITS/ML VIAL SUBQ PRN ×4 (06:09→21:01)
--- NOTE | 2018-01-07 06:09 | NUR ---
BLOOD SUGAR WAS CHECKED RESULT 192. INSULIN COVERAGE GIVEN.
--- NOTE | 2018-01-07 07:00 | NUR ---
ENDORSED TO AM NURSE.PT RESTING, NO S/S OF RESPIRATORY DISTRESS.NO SIGNS OF PAIN. ON NGT CONTINUOUS FEEDING.ON STUBBS CATH, PATENT AND DRAINING WELL. CALL LIGHT W/IN REACH. BED AT LOWEST POSITION.
--- NOTE | 2018-01-07 07:05 | NUR ---
RECEIVED PT FROM SYSTEMS DEVELOPER NURSE, PT IS AWAKE AND LYING ON THE BED, SAFETY AND FALL PRECAUTION ENFORCED, YELLOW SIGN, YELLOW GOWN, ARM BAN WERE PLACED, BED IN LOW POSITION AND SIDE RAILS ARE UP, CALL LIGHT WITHIN REACH. PT IS ON CONTINUOUS FEEDING OF NEPRO AT 40ML/HR WITH 170ML WATER FLUSHING Q4H. PT HAS AN IV LINE ON THE RT WRIST 6.22 ON SALINE LOCK AND A RT TRE CATHETER IN PLACE. STUBBS CATHETER IN PLACE AND DRAINED 200ML OF URINE IN THE BAG, NG TUBE IN PLACE AND SCD WERE ALSO PLACED. PT IS [id number] AND NO SIGN OF DISTRESS NOTED THOUGH A LITTLE CONFUSED, AND KEEPS SAYING "MAMA. WILL CONTINUE TO MONITOR PT.
[2018-01-07 07:12] LABS: BASOPHILS % (AUTO) 0.2 % (0.0-2.0); EOSINOPHILS # (AUTO) 0.4 K/uL (0-0.4); HEMATOCRIT 28.8 % (36-52); HEMOGLOBIN 10.2 g/dL (12.0-18.0); LYMPHOCYTES # (AUTO) 0.8 K/uL (2.0-11.5); LYMPHOCYTES % (AUTO) 7.1 % (20.5-51.1); MEAN CORPUSCULAR HEMOGLOBIN 31 pg (27-31); MEAN CORPUSCULAR HGB CONC 35 g/dL (33-37); MEAN CORPUSCULAR VOLUME 87.6 fL (80-94); MONOCYTES # (AUTO) 1.3 K/uL (0.8-1.0); MONOCYTES % (AUTO) 12.6 % (1.7-9.3); NEUTROPHILS # (AUTO) 8.1 K/uL (1.8-7.7); NEUTROPHILS % (AUTO) 76.1 % (42.2-75.2); PLATELET COUNT (AUTO) 143 K/uL (140-450); RED BLOOD CELL COUNT(AUTO) 3.29 MIL/uL (4.20-6.10); RED CELL DISTRIBUTION WIDTH 13.9 % (11.6-13.7); WHITE BLOOD COUNT (AUTO) 10.6 K/uL (4.8-10.8)
[2018-01-07 07:21] LABS: ANION GAP 10.7 (8-16); CARBON DIOXIDE 26.3 mmol/L (21-32)
[2018-01-07 07:29] LABS: HEPATITIS B CORE AB TOTAL Negative (Negative); HEPATITIS B SURFACE ANTIBODY Non Reactive (.); HEPATITIS B SURFACE ANTIGEN Negative (Negative)
[2018-01-07 07:30] LABS: ALBUMIN 1.9 g/dL (3.4-5.0); ANION GAP 11.2 (8-16); CARBON DIOXIDE 25.8 mmol/L (21-32); TOTAL BILIRUBIN 0.2 mg/dL (0.0-1.0)
--- NOTE | 2018-01-07 07:45 | NUR ---
RECEIVED A CRITICAL LAB REPORT FROM MYLES REGARDING THE PT'S CREATININE OF 4.4
[2018-01-07 07:48] LABS: CREATININE 4.4 mg/dL (0.7-1.3)
[2018-01-07 07:55] LABS: CREATININE 4.4 mg/dL (0.7-1.3)
[2018-01-07 08:00] VITALS: BP 158/78
[2018-01-07] MEDS: PANTOPRAZOLE 40 MG INJ VIAL IVP SCH (08:46)
[2018-01-07] MEDS: POLYETHYLENE GLYCOL 17 GM/PKT NG SCH (08:46)
[2018-01-07] MEDS: DIVALPROEX SPRINKLES 125 MG CAPDR PO SCH ×2 (08:47→20:26)
[2018-01-07] MEDS: LISINOPRIL 5 MG TAB NG SCH (08:47)
[2018-01-07] MEDS: CALCIUM ACETATE 667 MG TAB PO SCH ×3 (08:47→17:12)
[2018-01-07] MEDS: hydrALAZINE 20 MG/ML VIAL IVP PRN (11:18)
--- NOTE | 2018-01-07 11:21 | NUR ---
PT' VITAL SIGNS WAS CHECKED AND BLOOD PRESSURE IS HIGH, 186/93 AND PULSE IS 100, HYDRALAZINE IVP WAS GIVEN AT 0.5ML. WILL CONTINUE TO MONITOR PT.
[2018-01-07 12:00] VITALS: BP 175/84
--- NOTE | 2018-01-07 13:30 | NUR ---
DR. DELACRUZ CAME TO THE PT'S ROOM AND CHECKED THE PT.
--- NOTE | 2018-01-07 14:04 | NUR ---
CLINICAL CONCURRENT REVIEW FAXED TO [facility] [phone]. 1400 DEMOGRAPHIC AND CLINICAL INFORMATION FAXED TO MISAEL AT [facility] FAX [phone] AND PHONE [phone].
--- NOTE | 2018-01-07 15:49 | NUR ---
SPOKE TO DR. VANN AND INFORMED ABOUT THE PT'S HIGH BP, DR. VANN MADE A TALEPHONE ORDER OF LABETALOL, 20MG IV PUSH ONE TIME DOSE. ACKNOWLEDGED, ORDERED VERIFIED AND READ BACK.
[2018-01-07 16:00] VITALS: BP 155/78
--- NOTE | 2018-01-07 16:02 | NUR ---
PT'S NIECE, BRITTANI SIGNED THE CONSENT FRO EGD AND PEG TUBE PLACEMENT AND PLACEMENT OF A TUNNELED HEMODIALYSIS PERMACATH.
[2018-01-07] MEDS ORDERED: LABETALOL 100 MG/20 ML VIAL IV SCH (16:30)
[2018-01-07] MEDS ORDERED: LABETALOL 100 MG/20 ML VIAL IV PRN (16:40)
[2018-01-07] MEDS: AZITHROMYCIN 500 MG in DEXTROSE 5% 250 ML IV SCH (17:12)
--- NOTE | 2018-01-07 17:27 | NUR ---
INFORMED DIALYSIS NURSE, VLADIMIR MARTIN ABOUT THE SCHEDULED DIALYSIS OF THE PT MICHEL AT 0600. DIALYSIS NURSE ACKNOWLEDGED AND WILL ENDORSED TO WEIGHT ANALYST NURSE.
--- NOTE | 2018-01-07 19:49 | NUR ---
RECEIVED REPORT FROM DAY SHIFT NURSE, NORI, AT PT BEDSIDE. PT IN STABLE CONDITION. PT IS AWAKE AND NONVERBAL. NG TUBE IN PLACE WITH FEEDING RUNNING PER MD ORDERS. PT HAS R IJ TRE CATHETER. IV ACCESS IN R WRIST 22G, SALINE LOCKED. IV IS PATENT AND INTACT. SKIN IS INTACT. STUBBS CATHETER IN PLACE DRAINING CLEAR PALE YELLOW URINE. SCD ARE ON PT. FALL RISK PROTOCOL. PT HAS MITTEN RESTRAINT TO L HAND D/T TRYING TO PULL OUT WIRES. MITTEN REMOVED AND SKIN CHECKED N9O SIGNS OF IRRITATION. PT ORDERED NPO AFTER MIDNIGHT, SIGN POSTED IN ROOM. FLACC-0. BED IS LOCKED, LOW POSITION, WITH SIDE RAILS UP X2. BOARD UPDATED. WILL CONTINUE TO MONITOR PT.
--- NOTE | 2018-01-07 19:49 | NUR ---
ENDORSED PT TO GOLD LEAF GILDER NURSEMARBELLA FOR CONTINUITY OF CARE. PT IS STABLE AT THIS TIME.
[2018-01-07 20:00] VITALS: BP 162/86
--- NOTE | 2018-01-07 20:27 | NUR ---
ADMINISTERED SCHEDULED MEDICATIONS TO PT. PT TOLERATED WELL. WILL CONTINUE TO MONITOR.
--- NOTE | 2018-01-07 21:01 | NUR ---
BS CHECKED, 179. INSULIN COVERAGE GIVEN PER MD ORDERS. PT TOLERATED WELL WILL CONTINUE TO MONITOR.
--- NOTE | 2018-01-07 21:50 | NUR ---
PT ASLEEP IN BED. NO SIGNS OR SYMPTOMS OF DISTRESS. RESTRAINT REMOVED AND SKIN CHECKED, NO REDNESS OR SIGNS OF IRRITATION. PT HAS GOOD ROM BUT CONTINUES TO TRY AND GRAB AT NG TUBE. WILL CONTINUE TO MONITOR.
--- NOTE | 2018-01-07 21:57 | NUR ---
PT BP AND HR REASSESSED. BP: 147/74, HR: 83. FLACC-0. PT RESTING COMFORTABLY IN BED. WILL CONTINUE TO MONITOR.
[2018-01-08] VITALS: BP 154/75
--- NOTE | 2018-01-08 | NUR ---
PT NOW NPO, TUBE FEEDING DISCONTINUED. RESTRAINT REMOVED AND SKIN CHECKED, NO REDNESS OR SIGNS OF IRRITATION. PT HAS NO SIGNS OF DISTRESS. WILL CONTINUE TO MONITOR.
--- NOTE | 2018-01-08 02:03 | NUR ---
PT ASLEEP IN BED. FLACC-0. NO SIGNS OF DISTRESS. MITTEN REMOVED, SKIN SHOWS NO REDNESS OR SIGNS OF IRRITATION. WILL CONTINUE TO MONITOR.
--- NOTE | 2018-01-08 04:16 | NUR ---
PT HAS NO CHANGE IN CONDITION. WILL CONTINUE TO MONITOR.
[2018-01-08 04:45] VITALS: BP 161/51
[2018-01-08] MEDS: cloNIDine 0.1 MG TAB NG SCH ×3 (05:35→21:10)
--- NOTE | 2018-01-08 05:35 | NUR ---
SCHJEDULED MEDICATION ADMINISTERED. PT TOLERATED WELL. NO SIGNS OR SYMPTOMS OF DISTRESS. WILL CONTINUE TO MONITOR.
[2018-01-08] MEDS: BLOOD GLUCOSE MONITORING 1 DEV DEV FS SCH ×4 (06:33→19:54)
--- NOTE | 2018-01-08 07:10 | NUR ---
ENDORSED PT TO DAY SHIFT NURSE FOR CONTINUITY OF CARE. PT IN STABLE CONDITION.
[2018-01-08 07:56] LABS: BASOPHILS % (AUTO) 0.1 % (0.0-2.0); EOSINOPHILS # (AUTO) 0.3 K/uL (0-0.4); EOSINOPHILS % (AUTO) 2.9 % (0.0-4.0); HEMATOCRIT 26.1 % (36-52); LYMPHOCYTES # (AUTO) 0.8 K/uL (2.0-11.5); LYMPHOCYTES % (AUTO) 6.5 % (20.5-51.1); MEAN CORPUSCULAR HEMOGLOBIN 31 pg (27-31); MEAN CORPUSCULAR HGB CONC 35 g/dL (33-37); MEAN CORPUSCULAR VOLUME 88.2 fL (80-94); MONOCYTES # (AUTO) 1.5 K/uL (0.8-1.0); MONOCYTES % (AUTO) 13.2 % (1.7-9.3); NEUTROPHILS % (AUTO) 77.3 % (42.2-75.2); PLATELET COUNT (AUTO) 134 K/uL (140-450); RED BLOOD CELL COUNT(AUTO) 2.96 MIL/uL (4.20-6.10); RED CELL DISTRIBUTION WIDTH 13.5 % (11.6-13.7); WHITE BLOOD COUNT (AUTO) 11.6 K/uL (4.8-10.8)
[2018-01-08 08:00] VITALS: BP 143/66
[2018-01-08] MEDS: CALCIUM ACETATE 667 MG TAB PO SCH ×3 (08:00→17:33)
[2018-01-08 08:01] LABS: ALBUMIN 1.9 g/dL (3.4-5.0); ANION GAP 10.7 (8-16); CARBON DIOXIDE 26.5 mmol/L (21-32); PHOSPHORUS 3.3 mg/dL (2.5-4.9); POTASSIUM 4.2 mmol/L (3.5-5.1); TOTAL BILIRUBIN 0.2 mg/dL (0.0-1.0)
[2018-01-08] MEDS: POLYETHYLENE GLYCOL 17 GM/PKT NG SCH (09:00)
[2018-01-08] MEDS: LISINOPRIL 5 MG TAB NG SCH (09:00)
[2018-01-08] MEDS: DIVALPROEX SPRINKLES 125 MG CAPDR PO SCH ×2 (09:00→21:08)
[2018-01-08] MEDS: VIT-B COMP/VIT-C/FOLIC ACID 1 TAB PO SCH (09:00)
[2018-01-08] MEDS: PANTOPRAZOLE 40 MG INJ VIAL IVP SCH (09:48)
[2018-01-08] MEDS ORDERED: PROPOFOL 200 MG/20 ML VIAL IV ONE (10:15)
--- NOTE | 2018-01-08 10:15 | NUR ---
PATIENT LEFT THE UNIT FOR PEG, AND TUNNELLED HD CATH PLACEMENT
[2018-01-08] MEDS ORDERED: fentaNYL 0.05 MG/ML VIAL ONE (10:31)
[2018-01-08] MEDS ORDERED: LIDOCAINE/EPI 1% 1:100000 20 ML VIAL INJ ONE (11:06)
[2018-01-08] MEDS ORDERED: BUPIVACAINE-MPF/EPI 0.25% 30 ML VIAL INJ ONE (11:06)
[2018-01-08] MEDS ORDERED: ONDANSETRON 4 MG/2 ML VIAL IVP PRN (11:50)
[2018-01-08 12:00] VITALS: BP 159/77
[2018-01-08] MEDS ORDERED: BLOOD GLUCOSE MONITORING 1 DEV DEV FS SCH (12:00)
--- NOTE | 2018-01-08 12:25 | NUR ---
PT BACK FROM SURGICAL PROCEDURES. PEG TUBE AND TUNNELLED HD CATHETER INSERTED. NO S/S OF DISTRESS NOTED. VITAL SIGNS WITHIN NORMAL RANGE FOR PT'S BASELINE. WILL CONTINUE TO MONITOR.
[2018-01-08] MEDS ORDERED: CLON0.1T42 NG (15:03)
[2018-01-08] MEDS ORDERED: ROC2I IJ (15:03)
[2018-01-08] MEDS ORDERED: [UNRECOGNIZED DRUG - CODE] IV (15:03)
[2018-01-08] MEDS ORDERED: NEP PO (15:03)
[2018-01-08] MEDS ORDERED: LISI-424 NG (15:03)
--- NOTE | 2018-01-08 15:11 | NUR ---
01/08/18 RD FOLLOW UP COMPLETED PLEASE REFER TO NUTRITION PROGRESS NOTE UNDER CARE ACTIVITY FOR ESTIMATED NUTRITIONAL NEEDS. 1. CONTINUE NPO DIET MEDICALLY ADVISED. WHEN MEDICALLY CLEARED, RECOMMEND NEPRO CARB STEADY AT 40 ML/HR WATER-FLUSH [address] TO FOLLOW-UP 2-3 DAYS, HIGH RISK BRIELLE MATSON, RD
[2018-01-08] MEDS: NACL 0.9% 1,000 ML IV SCH (15:48)
[2018-01-08 16:00] VITALS: BP 159/78
[2018-01-08] MEDS: AZITHROMYCIN 500 MG in DEXTROSE 5% 250 ML IV SCH (17:34)
--- NOTE | 2018-01-08 18:00 | NUR ---
STARTED THE NEPRO FORMULA TUBE FEED 10 ML/HR, WITH 130 ML WATER FLUSH Q4H.
--- NOTE | 2018-01-08 18:05 | NUR ---
PT BEGAN DIALYSIS TREATMENT.
--- NOTE | 2018-01-08 18:48 | NUR ---
HD IN PROGRESS. NO S/S OF DISTRESS AT THIS TIME.
--- NOTE | 2018-01-08 19:10 | NUR ---
PT REPORT GIVEN AT BEDSIDE TO THE CIGARETTE MAKING EXAMINER NURSE. PT IS CURRENTLY RECEIVING DIALYSIS TREATMENT; TOLERATING WELL, NO S/S OF DISTRESS. BED IN LOW POSITION, CALL LIGHT WITHIN REACH.
--- NOTE | 2018-01-08 19:10 | NUR ---
RECEIVED REPORT FROM DAY SHIFT NURSE, HYUN, AT PT BEDSIDE. PT IN STABLE CONDITION. PT IS AWAKE AND NONVERBAL. NEW G TUBE IN PLACE WITH FEEDING RUNNING PER MD ORDERS. G TUBE PATENCY CHECKED. NO RESIDUALS. PT HAS R UPPER CHEST TUNNELED CATHETER AND IS CURRENTLY RECEIVING HEMODIALYSIS. IV ACCESS IN R WRIST 22G, WITH IVF RUNNING PER MD ORDERS. IV IS PATENT AND INTACT. SKIN IS INTACT. STUBBS CATHETER IN PLACE DRAINING CLEAR PALE YELLOW URINE. SCD ARE ON PT. FALL RISK PROTOCOL. PT HAS MITTEN RESTRAINT TO L HAND D/T TRYING TO PULL OUT WIRES. MITTEN REMOVED AND SKIN CHECKED NO SIGNS OF SKIN IRRITATION. FLACC-0. BED IS LOCKED, LOW POSITION, WITH SIDE RAILS UP X2. SEIZURE PRECAUTIONS IN PLACE. BOARD UPDATED. WILL CONTINUE TO MONITOR
[2018-01-08 20:00] VITALS: BP 159/80
--- NOTE | 2018-01-08 20:57 | NUR ---
DIALYSIS COMPLETED. 2.5 L REMOVED. PT IN STABLE CONDITION. WILL CONTINUE TO MONITOR.
[2018-01-08] MEDS: INSULIN LISPRO SLIDING SCALE 100 UNITS/ML VIAL SUBQ PRN (21:08)
--- NOTE | 2018-01-08 21:10 | NUR ---
ADMINISTERED SCHEDULED MEDICATIONS. PT TOLERATED WELL. WILL CONTINUE TO MONITOR.
--- NOTE | 2018-01-08 22:40 | NUR ---
PT BP AND HR REASSESSED, BP: 127/73 HR: 94. PT RESTING COMFORTABLY IN BED. NO SIGNS OF DISTRESS. WILL CONTINUE TO MONITOR.
--- NOTE | 2018-01-08 23:12 | NUR ---
MITTENS RESTRAINT REMOVED. PT STILL ATTEMPTING TO PULL AT IV. SKIN SHOWS NO REDNESS OR IRRITATION. RESIDUALS CHECKED, 20ML. PT HAS NO SIGNS OF DISTRESS. WILL CONTINUE TO MONITOR.
[2018-01-09] VITALS: BP 125/68
--- NOTE | 2018-01-09 | NUR ---
PT TOLERATING FEEDING WELL, FEEDING INCREASED TO 20ML PER HOUR. PT HAS NO SIGNS OF DISTRESS. WILL CONTINUE TO MONITOR.
--- NOTE | 2018-01-09 02:03 | NUR ---
PT ASLEEP IN BED. NO SIGNS OR SYMPTONMS OF DISTRESS. WILL CONTINUE TO MONITOR.
[2018-01-09 04:00] VITALS: BP 135/68
--- NOTE | 2018-01-09 04:18 | NUR ---
ASSISTED PAYMENT COLLECTOR IN CLEANING, CHANGING AND TURNING PT. PT TOLERATED WELL. NO SIGNS OF DISTRESS. WILL CONTINUE TO MONITOR.
[2018-01-09] MEDS: NACL 0.9% 1,000 ML IV SCH ×2 (04:29→12:42)
[2018-01-09] MEDS: cloNIDine 0.1 MG TAB NG SCH ×3 (05:32→21:13)
--- NOTE | 2018-01-09 05:34 | NUR ---
SCHEDULED MEDICATION ADMINISTERED. BS CHECKED, 128. NO COVERAGE NEEDED PER MD ORDERS. PT TOLERATED WELL. FLACC-0. WILL CONTINUE TO MONITOR.
[2018-01-09] MEDS: BLOOD GLUCOSE MONITORING 1 DEV DEV FS SCH ×4 (05:42→21:14)
--- NOTE | 2018-01-09 07:10 | NUR ---
PT REPORT RECEIVED FROM CRANKSHAFT STRAIGHTENER NURSE AT BEDSIDE. PT IS CALMLY RESTING IN BED. TUBE FEED GOING AT 30 ML/HR. PT ON ROOM AIR AT THIS TIME, O2 SAT 96. NO S/S OF DISTRESS NOTED. BED IN LOW POSITION AND CALL LIGHT WITHIN REACH. WILL CONTINUE TO MONITOR.
--- NOTE | 2018-01-09 07:11 | NUR ---
ENDORSED PT TO DAY SHIFT NURSEHYUN, FOR CONTINUITY OF CARE. PT IN STABLE CONDITION.
[2018-01-09 07:56] VITALS: BP 146/59
[2018-01-09] MEDS: CALCIUM ACETATE 667 MG TAB PO SCH ×3 (08:00→17:27)
--- NOTE | 2018-01-09 08:00 | NUR ---
MITTEN RESTRAINT TAKEN OFF OF PT'S LEFT HAND; PT IS CALM, NO S/S OF DISTRESS.
[2018-01-09] MEDS: PANTOPRAZOLE 40 MG INJ VIAL IVP SCH (09:45)
[2018-01-09] MEDS: DIVALPROEX SPRINKLES 125 MG CAPDR PO SCH ×2 (09:46→21:14)
[2018-01-09] MEDS: VIT-B COMP/VIT-C/FOLIC ACID 1 TAB PO SCH (09:46)
[2018-01-09] MEDS: LISINOPRIL 5 MG TAB NG SCH (09:46)
[2018-01-09] MEDS: POLYETHYLENE GLYCOL 17 GM/PKT NG SCH (09:46)
--- NOTE | 2018-01-09 10:15 | NUR ---
PT'S HD CATHETER DRESSING CHANGED. PT TOLERATED WELL.
--- NOTE | 2018-01-09 10:29 | NUR ---
ENDORSED PT TO RIKY YOUNG. PATIENT IS IN STABLE CONDITION, NO S/S OF DISTRESS NOTED.
--- NOTE | 2018-01-09 10:30 | NUR ---
RECEIVED BEDSIDE REPORT FROM SELENA, SIHRA. PATIENT ENDORSED IN STABLE CONDITION. HE IS APHASIC. TELE MONITOR IN PLACE. SEIZURE, FALL RISK PROTOCOL IN PLACE. PATIENT ON ROOM AIR. TUBE FEEDING NEPHRO AT 30ML/HR, WILL INCREASE TO 40 AT 1200. PEG TUBE IS CLEAN DRY AND INTACT. STUBBS IN PLACE, PATIENT IS INCONTINENT. R FA 22G INFUSING NS AT 60. CLEAN, DRY AND INTACT. R IJ TRE CATH PLACED FOR HD. BED IN LOW POSITION. CALL LIGHT WITHIN REACH, WILL CONTINUE TO MONITOR THE PATIENT
--- NOTE | 2018-01-09 11:00 | NUR ---
PATIENT STILL OK WITH RESTRAINTS. HE IS NOT TRYING TO REMOVE ANY LINES. HE IS RESTING AND IN NO DISTRESS AT THIS TIME.
[2018-01-09 12:00] VITALS: BP 143/57
--- NOTE | 2018-01-09 12:00 | NUR ---
CHECKED FOR PLACEMENT USING SWOOSH 20ML RESIDUAL. ADMINISTERED RESIDUAL BACK TO PATIENT. INCREASED FEEDING TO 40ML/HR. WILL CONTINUE TO MONITOR THE PATIENT. BED IN LOW POSITION. CALL LIGHT WITHIN REACH, WILL CONTINUE TO MONITOR
[2018-01-09] MEDS: INSULIN LISPRO SLIDING SCALE 100 UNITS/ML VIAL SUBQ PRN ×3 (12:51→21:16)
--- NOTE | 2018-01-09 12:52 | NUR ---
ADMINISTERED IVF AND GOT NEW IV TUBING. IV IS CLEAN, DRY AND INTACT. CHECKED FOR GTUBE PLACEMENT USIGN SWOOSH 10ML RESIDUAL. PLACED BACK. ADMINISTERED MEDS. PATIENT TOLERATED WELL. PATIENT HAS NO SIGNS OF DISTRESS. WILL CONTINUE TO MONITOR THE PATIENT
--- NOTE | 2018-01-09 13:00 | NUR ---
PATIENT TOLERATING FEEDING WELL. RESIDUAL IS 5ML. ADMINISTERED BACK TO PATIENT. BED IN LOW POSITION. CALL LIGHT WITHIN REACH. WILL CONTINUE TO MONITOR THE PATIENT
--- NOTE | 2018-01-09 15:00 | NUR ---
PATIENT DOING WELL WITHOUT RESTRAINTS. STILL HAS NO ATTEMPTED TO REMOVE ANY LINES OR CAUSE HARM TO SELF OR OTHERS. WILL CONTINUE TO MONITOR THE PATIENT
[2018-01-09 16:00] VITALS: BP 140/71
--- NOTE | 2018-01-09 16:20 | NUR ---
ADMINISTERED MEDS. PATIENT TOLERATING WELL. IV IS CLEAN, DRY AND INTACT. WILL CONTINUE TO MONITOR THE PATIENT
[2018-01-09] MEDS: AZITHROMYCIN 500 MG in DEXTROSE 5% 250 ML IV SCH (17:23)
--- NOTE | 2018-01-09 17:36 | NUR ---
ADMINISTERED MEDS. PATIENT TOLERATING WELL. NO SIGNS OF DISTRESS. WILL CONTINUE TO MONITOR THE PATIENT
--- NOTE | 2018-01-09 18:00 | NUR ---
NEW FEEDING AND FEEDING TUBES PLACED. PATIENT TOLERATING FEEDING WELL. NO SIGNS OF DISTRESS. WILL CONTINUE TO MONITOR THE PATIENT
--- NOTE | 2018-01-09 19:15 | NUR ---
GAVE BEDSIDE REPORT TO BATH ATTENDANT NURSE. PATIENT ENDORSED IN STABLE CONDITION.
--- NOTE | 2018-01-09 19:16 | NUR ---
RECEIVED REPORT FROM AM SHIFT NURSE AT BEDSIDE. PT AWAKE, RESPIRATIONS EVEN & UNLABORED. GT IN PLACE WITH ONGOING FEEDING OF NEPRO @ 40ML/HR. RT WRIST IV ACCESS INTACT & ASYMPTOMATIC. HOB ELEVATED @ 30DEG. CALL LIGHT WITHIN REACH.
[2018-01-09 20:00] VITALS: BP 164/72
--- NOTE | 2018-01-09 21:15 | NUR ---
DUE MEDS GIVEN AT THIS TIME. PT AWAKE, NONVERBAL BUT GRUNTS IN REPLY TO QUESTIONS, FLACC 0. GT INTACT, STOMA DRESSING CLEAN & DRY. PT DENIES ANY DISCOMFORT. RT WRIST IV ACCESS INTACT & ASYMPTOMATIC WITH ONGOING NS INFUSION @ 10ML/HR. PT REPOSITIONED VIA 2-PERSON TOTAL ASSIST. F/C INTACT & DRAINING CLEAR PALE YELLOW URINE. PERINEAL AREA CLEAN & DRY. CALL LIGHT WITHIN REACH. HOB MAINTAINED ELEVATED AT LEAST 30DEG.
--- NOTE | 2018-01-09 23:00 | NUR ---
PT ASLEEP IN BED WITH HOB ELEVATED AT 30DEG, RESPIRATIONS EVEN & UNLABORED, FLACC 0. RIGHT WRIST IV ACCESS INTACT & ASYMPTOMATIC. ONGOING GT FEEDING. CALL LIGHT WITHIN REACH. BED ALARM ON.
[2018-01-10] VITALS: BP 163/65
--- NOTE | 2018-01-10 | NUR ---
PT HEARD REPEATEDLY YELLING "MAMA". WENT TO PT'S BEDSIDE TO ASSESS. PT LYING IN BED WITH HOB AT 30DEG, FLACC 0, LIGHTS OUT BUT TV ON WITH SPEAKER BY PT'S RT EAR. VITAL SIGNS OBTAINED. ASKED PT IF HE WANTS TV OFF, PT GRUNTS IN REPLY. TV TURNED OFF. PT BECAME QUIET AND CLOSED HIS EYES, RESPIRATIONS EVEN & UNLABORED. CALL LIGHT PLACED WITHIN REACH. MAINTAINED CALM & QUIET ENVIRONMENT. RT WRIST IV ACCESS INTACT & ASYMPTOMATIC, GT FEEDING ONGOING. Addendum: 01/11/18 at 0046 by Paloma Bernard RN WRONG DATE INPUT. CORRECTION: DATE OF EVENT 01/11/18 0000.
[2018-01-10] MEDS: hydrALAZINE 20 MG/ML VIAL IVP PRN ×2 (01:47→22:29)
--- NOTE | 2018-01-10 01:47 | NUR ---
APRESOLINE IVP ADMINISTERED FOR ELEVATED BP. PT AWAKE, GRUNTS IN REPLY TO QUESTIONS, RESPIRATIONS EVEN & UNLABORED, FLACC 0. CALL LIGHT WITHIN REACH. BED ALARM ON.
--- NOTE | 2018-01-10 02:47 | NUR ---
BP REASSESS AT THIS TIME. PT AWAKE, NONVERBAL, NO SIGNS OF DISTRESS, RESPIRATIONS EVEN & UNLABORED. RT WRIST IV ACCESS INTACT & ASYMPTOMATIC. CALL LIGHT WITHIN REACH. BED ALARM ON.
[2018-01-10 04:00] VITALS: BP 154/78
--- NOTE | 2018-01-10 04:00 | NUR ---
PT ASLEEP, AROUSABLE BY AUDITORY STIMULI. VITAL SIGNS OBTAINED AT THIS TIME. PT NONVERBAL, RESPIRATIONS EVEN & UNLABORED, FLACC 0. RT WRIST IV ACCESS INTACT & ASYMPTOMATIC. ONGOING GT FEEDING. HOB ELEVATED AT 30DEG. CALL LIGHT WITHIN REACH. BED ALARM ON.
[2018-01-10] MEDS: cloNIDine 0.1 MG TAB NG SCH ×3 (05:05→20:33)
[2018-01-10] MEDS: INSULIN LISPRO SLIDING SCALE 100 UNITS/ML VIAL SUBQ PRN ×4 (05:08→21:23)
[2018-01-10] MEDS: BLOOD GLUCOSE MONITORING 1 DEV DEV FS SCH ×4 (05:15→21:21)
--- NOTE | 2018-01-10 06:15 | NUR ---
PT LYING COMFORTABLY IN BED, AWAKE, GRUNTS IN REPLY TO QUESTIONS. RESPIRATIONS EVEN & UNLABORED. ONGOING GT FEEDING. RT WRIST IV INTACT & ASYMPTOMATIC. PT CLEAN & DRY. HOB ELEVATED @ 30DEG, CALL LIGHT WITHIN REACH, BED ALARM ON.
--- NOTE | 2018-01-10 07:10 | NUR ---
RECEIVED BEDSIDE REPORT FROM TENSILE TESTER NURSE. PATIENT IS SLEEPING. NO SIGNS OF DISTRESS ON ROOM AIR. FALL RISK AND SEIZURE PRECAUTIONS. R HAND 22G INFUSING NS AT 10 TKO. IV IS CLEAN, DRY AND INTACT. STUBBS IN PLACE. GTUBE INFUSING NEPHRO AT 40ML. GTUBE IS CLEAN, DRY AND INTACT. TELE MONITOR IN PLACE. R HD PERMACATH. CATH IS CLEAN, DRY AND INTACT.BED IN LOW POSITION. CALL LIGHT WITHIN REACH. WILL CONTINUE TO MONITOR THE PATIENT
[2018-01-10 07:33] LABS: BASOPHILS % (AUTO) 0.3 % (0.0-2.0); EOSINOPHILS # (AUTO) 0.5 K/uL (0-0.4); EOSINOPHILS % (AUTO) 3.3 % (0.0-4.0); HEMATOCRIT 24.3 % (36-52); HEMOGLOBIN 8.5 g/dL (12.0-18.0); LYMPHOCYTES % (AUTO) 7.2 % (20.5-51.1); MEAN CORPUSCULAR HEMOGLOBIN 31 pg (27-31); MEAN CORPUSCULAR HGB CONC 35 g/dL (33-37); MEAN CORPUSCULAR VOLUME 88.5 fL (80-94); MONOCYTES # (AUTO) 1.5 K/uL (0.8-1.0); MONOCYTES % (AUTO) 10.5 % (1.7-9.3); NEUTROPHILS # (AUTO) 10.9 K/uL (1.8-7.7); NEUTROPHILS % (AUTO) 78.7 % (42.2-75.2); PLATELET COUNT (AUTO) 146 K/uL (140-450); RED BLOOD CELL COUNT(AUTO) 2.75 MIL/uL (4.20-6.10); RED CELL DISTRIBUTION WIDTH 13.8 % (11.6-13.7); WHITE BLOOD COUNT (AUTO) 13.9 K/uL (4.8-10.8)
[2018-01-10 07:42] LABS: ALBUMIN 1.9 g/dL (3.4-5.0); ANION GAP 11.9 (8-16); CARBON DIOXIDE 25.5 mmol/L (21-32); CREATININE 3.9 mg/dL (0.7-1.3); PHOSPHORUS 2.9 mg/dL (2.5-4.9); POTASSIUM 3.4 mmol/L (3.5-5.1); TOTAL BILIRUBIN 0.1 mg/dL (0.0-1.0)
[2018-01-10 08:00] VITALS: BP 144/71
[2018-01-10] MEDS: CALCIUM ACETATE 667 MG TAB PO SCH ×3 (08:00→17:25)
--- NOTE | 2018-01-10 08:30 | NUR ---
HD NURSE. PATIENT IS TO START HD NOW. WILL CONTINUE TO MONITOR THE PATIENT.
--- NOTE | 2018-01-10 09:00 | NUR ---
VLADIMIR, HD NURSE TO CHANGE THE CENTRAL LINE, GAVE HER THE KIT.
--- NOTE | 2018-01-10 10:00 | NUR ---
WILL ADMINISTER MEDS AFTER DIALYSIS. MEDS WILL GET DILUTED AND DIALYSIS NURSE RECOMMENDED TO WAIT SO IT DOESNT GET DILUTED W DIALYSIS
[2018-01-10 12:00] VITALS: BP 156/75
--- NOTE | 2018-01-10 12:00 | NUR ---
PATIENT TOLERATING HD WELL. WILL CONTINUE TO MONITOR. HD NURSE AT BEDSIDE
[2018-01-10] MEDS: POLYETHYLENE GLYCOL 17 GM/PKT NG SCH (12:45)
[2018-01-10] MEDS: DIVALPROEX SPRINKLES 125 MG CAPDR PO SCH ×2 (12:47→20:32)
[2018-01-10] MEDS: LISINOPRIL 5 MG TAB NG SCH (12:47)
[2018-01-10] MEDS: VIT-B COMP/VIT-C/FOLIC ACID 1 TAB PO SCH (12:48)
[2018-01-10] MEDS: PANTOPRAZOLE 40 MG INJ VIAL IVP SCH (12:49)
--- NOTE | 2018-01-10 13:07 | NUR ---
HD DONE. CHECKED FOR GTUBE PLACEMENT USING SWOOSH. SWOOSH HEARD. NO RESIDUAL. ADMINISTERED MEDS THROUGH GTUBE. FLUSHED AND STARTED FEEDING AGAIN. PATIENT TOLERATED WELL. BED IN LOW POSITION. CALL LIGHT WITHIN REACH. WILL CONTINUE TO MONITOR THE PATIENT.
--- NOTE | 2018-01-10 14:15 | NUR ---
PATIENT SLEEPING. NO SIGNS OF DISTRESS. WILL CONTINUE TO MONITOR THE PATIENT
--- NOTE | 2018-01-10 14:48 | NUR ---
ADMINISTERED MEDS. PATIENT TOLERATED WELL. WILL CONTINUE TO MONITOR THE PATIENT. BED IN LOW POSITION. BED ALARM ON
--- NOTE | 2018-01-10 15:04 | NUR ---
01/10/18 RD FOLLOW UP COMPLETED PLEASE REFER TO NUTRITION PROGRESS NOTE UNDER CARE ACTIVITY FOR ESTIMATED NUTRITIONAL NEEDS. 1. CONTINUE NEPRO WITH CARB STEADY AT 40 ML/HR 130 ML WATER FLUSH Q4H. 2. RD TO FOLLOW-UP 2-3 DAYS, HIGH RISK BRIELLE MATSON, RD
--- NOTE | 2018-01-10 15:50 | NUR ---
CALLED MISAEL AT [facility] AND INFORMED HER THAT PT MOST LIKELY WILL BE DISCHARGED AND NEED OUTPATIENT DIALYSIS CHAIR TIME. REQUESTED INFORMATION FAXED TO HER. CALLED [facility] AND INFORMED AYALA THAT PT IS READY FOR DISCHARGE AND FAXED OVER ALL OF THE CLINICAL INFORMATION THAT SHE REQUESTED. RECEIVED CALL FROM MISAEL AT [facility] [phone] AND SHE STATED THAT PT HAS A CHAIR AT [facility] DIALYSIS UNIT ON ,[address] AT 1 PM AND THAT ON SUNDAY 01/14 FIRST VISIT PT SHOULD BE THERE AT NOON AND WILL NEED A FAMILY MEMBER TO ACCOMPANY HIM TO SIGN THE CONSENT FORMS. CALLED AYALA AT [place] AND PROVIDED HER WITH THE INFORMATION. PER AYALA THEY WILL HAVE A BED FOR PT TOMORROW MORNING. [facility] TRANSPORT REQUEST FORM FILLED OUT AND SENT TO FAX [phone] PHONE [phone] TO SET UP TRANSPORT FROM [facility] TO DIALYSIS CENTER. TRANSPORT WILL CALL BACK TO NURSING UNIT WITH NAME OF TRANSPORT AND AUTH.
[2018-01-10 16:00] VITALS: BP 123/78
[2018-01-10] MEDS: AZITHROMYCIN 500 MG in DEXTROSE 5% 250 ML IV SCH (17:26)
--- NOTE | 2018-01-10 17:37 | NUR ---
ADMINISTERED MEDS. PATIENT TOLERATED WELL. NO SIGNS OF DISTRESS. BED IN LOW POSITION. CALL LIGHT WITHIN REACH. WILL CONTINUE TO MONITOR THE PATIENT
--- NOTE | 2018-01-10 18:00 | NUR ---
CHECKED GTUBE USING SWOOSH. 40ML RESIDUAL PLACED BACK TO PATIENT. CHANGED GTUBE LINE AND ADDED NEW FEEDING. PATIENT TOLERATING WELL. WILL CONTINUE TO MONITOR
--- NOTE | 2018-01-10 19:15 | NUR ---
GAVE BEDSIDE REPORT TO PARKING TECHNICIAN NURSE. PATIENT ENDORSED IN STABLE CONDITION
--- NOTE | 2018-01-10 19:16 | NUR ---
BEDSIDE REPORT RECEIVED FROM AM SHIFT NURSE. PT LYING COMFORTABLY IN BED WITH HOB ELEVATED @ 30DEG, AWAKE, GRUNTS IN REPLY TO QUESTIONS, RESPIRATIONS EVEN & UNLABORED. RT WRIST IV INTACT & ASYMPTOMATIC. GT FEEDING ONGOING. CALL LIGHT WITHIN REACH.
[2018-01-10 20:00] VITALS: BP 168/75
--- NOTE | 2018-01-10 20:40 | NUR ---
GT FEEDING HELD AT THIS TIME FOR GASTRIC RESIDUAL OF 140ML. ABD SOFT WITH ACTIVE BOWEL SOUNDS ON ALL QUADS. HOB KEPT ELEVATED @ 30DEG. PT AWAKE, GRUNTS IN REPLY TO QUESTIONS, FLACC 0, RESPIRATIONS EVEN & UNLABORED. CALL LIGHT WITHIN REACH.
--- NOTE | 2018-01-10 21:40 | NUR ---
GASTRIC RESIDUAL 60ML AT THIS TIME. GT FEEDING RESUMED @ 40ML/HR. HOB REMAINS ELEVATED AT 30DEG. PT AWAKE, NONVERBAL, RESPIRATIONS EVEN & UNLABORED, FLACC 0. CALL LIGHT WITHIN REACH.
[2018-01-11] VITALS: BP 156/71
--- NOTE | 2018-01-11 | NUR ---
PT HEARD REPEATEDLY YELLING "MAMA". WENT TO PT'S BEDSIDE TO ASSESS. PT LYING IN BED WITH HOB AT 30DEG, FLACC 0, LIGHTS OUT BUT TV ON WITH SPEAKER BY PT'S RT EAR. VITAL SIGNS OBTAINED. ASKED PT IF HE WANTS TV OFF, PT GRUNTS IN REPLY. TV TURNED OFF. PT BECAME QUIET AND CLOSED HIS EYES, RESPIRATIONS EVEN & UNLABORED. CALL LIGHT PLACED WITHIN REACH. MAINTAINED CALM & QUIET ENVIRONMENT. RT WRIST IV ACCESS INTACT & ASYMPTOMATIC, GT FEEDING ONGOING.
--- NOTE | 2018-01-11 02:05 | NUR ---
PT ASLEEP IN BED WITH HOB ELEVATED @ 30DEG, RESPIRATIONS EVEN & UNLABORED IN ROOM AIR. GT FEEDING INFUSING CONTINUOUSLY. RT WRIST IV ACCESS INTACT & ASYMPTOMATIC. CALL LIGHT WITHIN REACH. FALL & SEIZURE PRECAUTION PROTOCOL IN PLACE.
[2018-01-11 04:00] VITALS: BP 157/60
--- NOTE | 2018-01-11 04:18 | NUR ---
PT AWAKE, NONVERBAL, RESPIRATIONS EVEN & UNLABORED IN ROOM AIR. PERICARE & STUBBS CATH CARE PROVIDED, PT REPOSITIONED VIA 2-PERSON TOTAL ASSIST. HOB ELEVATED TO 30DEG. GT INTACT WITH ONGOING GT FEEDING. RIGHT WRIST IV ACCESS INTACT & ASYMPTOMATIC. CALL LIGHT WITHIN REACH.
[2018-01-11] MEDS: cloNIDine 0.1 MG TAB NG SCH ×2 (04:25→13:10)
[2018-01-11] MEDS: BLOOD GLUCOSE MONITORING 1 DEV DEV FS SCH ×2 (05:45→11:30)
[2018-01-11] MEDS: INSULIN LISPRO SLIDING SCALE 100 UNITS/ML VIAL SUBQ PRN ×2 (05:47→13:14)
--- NOTE | 2018-01-11 06:20 | NUR ---
PT ASLEEP, HOB ELEVATED @ 30DEG, RESPIRATIONS EVEN & UNLABORED IN ROOM AIR. GT INTACT WITH ONGOING FEEDING. RT WRIST IV INTACT & ASYMPTOMATIC. CALL LIGHT WITHIN REACH. FALL & SEIZURE PRECAUTIONS IN PLACE.
--- NOTE | 2018-01-11 07:20 | NUR ---
BEDSIDE REPORT GIVEN TO AM SHIFT NURSE.
--- NOTE | 2018-01-11 07:21 | NUR ---
REPORT RECEIVED FROM FOLEY ARTIST. PT IS IN BED, APHASIC ON BED REST. RESPIRATION EVEN AND UNLABORED O2 SATURATION @ 93% ON RA. GTUBE IN PLACE CLEAN DRY INTACT IN USE FOR GTUBE FEEDING ORDERED. F/C IN PLACE DRAINING YELLOW CLEAR URINE VIA GRAVITY. SKIN CLEAN DRY INTACT. RIGHT IJ PERMA CATH DSG CLEAN DRY INTACT. PT IS ON DIALYSIS ORDERED ON MW. PLAN OF CARE FOR TODAY IS TO TRANSFER TO SNF FOR IV ANTIBIOTICS. NO ACUTE DISCOMFORT NOTED, PT IS RESTING WELL AT THIS TIME. CALL LIGHT WITHIN REACH. HOURLY ROUNDS ONGOING. WILL CONTINUE TO MONITOR CLOSELY.
[2018-01-11 08:00] VITALS: BP 140/66
[2018-01-11] MEDS: VIT-B COMP/VIT-C/FOLIC ACID 1 TAB PO SCH (09:09)
[2018-01-11] MEDS: DIVALPROEX SPRINKLES 125 MG CAPDR PO SCH (09:09)
[2018-01-11] MEDS: PANTOPRAZOLE 40 MG INJ VIAL IVP SCH (09:09)
[2018-01-11] MEDS: LISINOPRIL 5 MG TAB NG SCH (09:09)
[2018-01-11] MEDS: POLYETHYLENE GLYCOL 17 GM/PKT NG SCH (09:10)
[2018-01-11] MEDS: CALCIUM ACETATE 667 MG TAB PO SCH ×2 (09:10→13:10)
--- NOTE | 2018-01-11 09:44 | NUR ---
GTUBE IN PLACE NOTED WITH 80ML OF RESIDUAL, ADMINISTERED ALL GTUBE MEDICATION PER FACILITY PROTOCOL, TOLERATED WELL. IV PUSH MEDICATION ADMINISTERED ORDERED TOLERATED WELL. NO ACUTE DISCOMFORT NOTED. WILL CONTINUE TO MONITOR PT CLOSELY.
--- NOTE | 2018-01-11 10:12 | NUR ---
CALLED MARY BAILEY SPOKE WITH SUSANA BAJWA PT CAN GO TO ROOM 23A AND REQUESTED THE PT TO COME AFTER LUNCH.
--- NOTE | 2018-01-11 10:56 | NUR ---
CALLED YANET [facility] REGARDING THE AUTHORIZATION FOR TRANSPORT , YANET STATED SHE IS NOT ON-CALL GAVE ME THE SHEET METAL WORKER HELPERCHILD CARE COORDINATOR LARS [phone]. SPOKE WITH LARS , AND NOTIFIED HER WE DIDN'T RECEIVE THE AUTHORIZATION FOR DIALYSIS OUT PT TRANSPORT YESTERDAY AND ALSO WE NEED TO DISCHARGE PATIENT BACK TO [place], LARS SAID SHE WILL CHECK AND CALL BACK.
[2018-01-11 12:00] VITALS: BP 164/87
--- NOTE | 2018-01-11 12:00 | NUR ---
MARY BAILEY CALLED TO FIND OUT IF THE AUTH FOR DIALYSIS TRANSPORT FOR TOMORROW HAS BE AUTHORIZED. NOTIFIED HER NOT OF YET. WILL KEEP HER POSTED.
--- NOTE | 2018-01-11 12:19 | NUR ---
LARS FROM [facility] CALLED BACK FOR TRANSPORT AUTHORIZATION [phone] WILL CALL [place]. I ASKED HER ABOUT [facility] TRANSPORT AUTHORIZATION SINCE DANIEL STOCK FAXED ALL THE REQUEST IT WILL BE OK DR BERKOWITZ AWARE AND WILL D/C PATIENT TO [facility] ROOM 23A.
--- NOTE | 2018-01-11 12:32 | NUR ---
ARRANGED TRANSPORT WITH [facility] PROVIDED THE AUTHORIZATION [id number] SUPERVISING FLOORPERSON TIME IS 1530 RN LEX JACOBSEN.
[2018-01-11] MEDS: hydrALAZINE 20 MG/ML VIAL IVP PRN (13:11)
[2018-01-11 14:40] VITALS: BP 158/75
--- NOTE | 2018-01-11 15:30 | NUR ---
PT ALL READY TO GO TO HIS FACILITY. TELE MONITOR OFF. IV IN WRIST STILL IN PLACE FOR CONTINUAL IV THERAPY. STUBBS CATH STILL IN PLACE. SKIN INTACT. NO SIGNS OF DISTRESS. ALL ID REMOVED. PT IS IN STABLE CONDITION. WILL CONTINUE TO MONITOR PT.
--- NOTE | 2018-01-11 16:00 | NUR ---
[facility]SP[facility] WHEELED PT OUT ON A GURNEY BACK TO HIS FACILITY [facility]. PT IN STABLE CONDITION.
--- NOTE | 2018-01-11 16:11 | NUR ---
CALLED [facility]. SPOKE TO RIKY FOWLER AND GAVE REPORT. NOTIFIED THEM PT IN ROUTE. ANSWERED ALL QUESTIONS. Addendum: 01/11/18 at 1705 by Rimma Lara RN PER JANETH, PT'S FAMILY REFUSED THE PNA AND FLU VACCINATION. WILL NOTE IN CHART.
== END 2018-01-11 16:00 | DRG 720 ==
LOC: MED 02:13 → MIC 04:18 → MTU 01-03 07:00
PROVIDERS: ADMIT Hospitalist; ATTEND Hospitalist
PROC: 02HV33Z Insertion of Infusion Device into Superior Vena Cava, Percutaneous Approach (ICD-10-PCS; 2018-01-03)
PROC: B548ZZA Ultrasonography of Superior Vena Cava, Guidance (ICD-10-PCS; 2018-01-03)
PROC: 5A1D70Z Performance of Urinary Filtration, Intermittent, Less than 6 Hours Per Day (ICD-10-PCS; 2018-01-04)
PROC: 5A1D70Z Performance of Urinary Filtration, Intermittent, Less than 6 Hours Per Day (ICD-10-PCS; 2018-01-06)
PROC: 02PYX3Z Removal of Infusion Device from Great Vessel, External Approach (ICD-10-PCS; 2018-01-08)
PROC: 02HV33Z Insertion of Infusion Device into Superior Vena Cava, Percutaneous Approach (ICD-10-PCS; 2018-01-08)
PROC: B5181ZA Fluoroscopy of Superior Vena Cava using Low Osmolar Contrast, Guidance (ICD-10-PCS; 2018-01-08)
PROC: 0JH63XZ Insertion of Tunneled Vascular Access Device into Chest Subcutaneous Tissue and Fascia, Percutaneous Approach (ICD-10-PCS; 2018-01-08)
PROC: 5A1D70Z Performance of Urinary Filtration, Intermittent, Less than 6 Hours Per Day (ICD-10-PCS; 2018-01-08)
PROC: 0DH63UZ Insertion of Feeding Device into Stomach, Percutaneous Approach (ICD-10-PCS; principal; 2018-01-08 10:30)
PROC: 5A1D70Z Performance of Urinary Filtration, Intermittent, Less than 6 Hours Per Day (ICD-10-PCS; 2018-01-10)
DX: A41.9 Sepsis, unspecified organism (principal); N17.0 Acute kidney failure with tubular necrosis; E43 Unspecified severe protein-calorie malnutrition; G93.41 Metabolic encephalopathy; J18.9 Pneumonia, unspecified organism; E87.2 Acidosis; R13.10 Dysphagia, unspecified; I69.351 Hemiplegia and hemiparesis following cerebral infarction affecting right dominant side; E11.22 Type 2 diabetes mellitus with diabetic chronic kidney disease; E87.5 Hyperkalemia; I12.0 Hypertensive chronic kidney disease with stage 5 chronic kidney disease or end stage renal disease; E83.42 Hypomagnesemia; E86.0 Dehydration; D63.8 Anemia in other chronic diseases classified elsewhere; E86.1 Hypovolemia; G40.909 Epilepsy, unspecified, not intractable, without status epilepticus; K21.9 Gastro-esophageal reflux disease without esophagitis; N18.6 End stage renal disease; E78.5 Hyperlipidemia, unspecified; R33.9 Retention of urine, unspecified; R62.7 Adult failure to thrive; I69.320 Aphasia following cerebral infarction; Z99.2 Dependence on renal dialysis; Z79.899 Other long term (current) drug therapy; Z79.4 Long term (current) use of insulin; Z79.82 Long term (current) use of aspirin; Z68.26 Body mass index [BMI] 26.0-26.9, adult
CPT/HCPCS: 36415; 51702; 70486; 71045; 74018; 76770; 80048; 80053; 81001; 82948; 83735; 83880; 84100; 84484; 85025; 85610; 85730; 86704; 86706; 86803; 87040; 87081; 87086; 87340; 90935; 92610; 93005; 96361; 96372; 96374; 96375; 99291; C9113; J0360; J0456; J0696; J1644; J1815; J2001; J2270; J2704; J3010; J3480; J3490; J7030; J7060; J7120; Q0092

== ENCOUNTER 2018-12-12 12:21 | Inpatient (IN) | payer OTHER ==
[~2018-12-12] VITALS: Ht 172.7 cm; Wt 67.6 kg
[~2018-12-12 12:21] MED LIST: ALPOS OP; ASPI-1718 PO; ATOR40TA PO; CLON0.1T42 NG; CLON0.1T42 PO; DIVA125E1 PO; ESOM40EC PO; HYDR-5122 PO; HYDR100T79 PO; INSU100S5 SUBQ; KEP500L PO; LACT10SO1 PO; LISI-424 NG; LISI5TAB18 PO; METF850T PO; MIRABULK PO; MULT-1305 PO; NEP PO; ROC2I IJ; [UNRECOGNIZED DRUG - CODE] IV
[2018-12-12 12:28] VITALS: BP 174/81
--- NOTE | 2018-12-12 13:01 | NUR ---
BROUGHT IN BY EMS FROM DIALYSIS STAFF STATED PT MOANING MORE THAN USUAL--NO OTHER COMPLAINTS RIGHT SIDED DEFICITS WITH HX OF CVA NO RECENT INJURIES---1.5HRS OF 3 HRS COMPLETED
--- NOTE | 2018-12-12 14:45 | NUR ---
CHECKED ON PT. LYING ON HIS BED. OBTAINED URINE SAMPLE AND IV ON LFT WRIST 22G. O2 SAT 98% ON RA. RESTING COMFORTABLY IN HIS BED. WILL CONTINUE TO MONITOR PT.
[2018-12-12 16:01] LABS: BASOPHILS % (AUTO) 0.2 % (0.0-2.0); EOSINOPHILS # (AUTO) 0.1 K/uL (0-0.4); EOSINOPHILS % (AUTO) 1.7 % (0.0-4.0); HEMATOCRIT 29.3 % (36-52); HEMOGLOBIN 9.8 g/dL (12.0-18.0); LYMPHOCYTES # (AUTO) 1.4 K/uL (2.0-11.5); LYMPHOCYTES % (AUTO) 20.3 % (20.5-51.1); MEAN CORPUSCULAR HEMOGLOBIN 32 pg (27-31); MEAN CORPUSCULAR HGB CONC 33 g/dL (33-37); MEAN CORPUSCULAR VOLUME 97.1 fL (80-94); MONOCYTES # (AUTO) 0.9 K/uL (0.8-1.0); MONOCYTES % (AUTO) 12.9 % (1.7-9.3); NEUTROPHILS # (AUTO) 4.4 K/uL (1.8-7.7); NEUTROPHILS % (AUTO) 64.9 % (42.2-75.2); PLATELET COUNT (AUTO) 191 K/uL (140-450); RED BLOOD CELL COUNT(AUTO) 3.02 MIL/uL (4.20-6.10); RED CELL DISTRIBUTION WIDTH 15.1 % (11.6-13.7); WHITE BLOOD COUNT (AUTO) 6.8 K/uL (4.8-10.8)
[2018-12-12 16:15] LABS: ANION GAP 9.4 (8-16); CARBON DIOXIDE 34.1 mmol/L (21-32); CHLORIDE 100 mmol/L (98-107); CREATININE 3.1 mg/dL (0.7-1.3); GLUCOSE 89 mg/dL (74-106); POTASSIUM 3.5 mmol/L (3.5-5.1); SODIUM SERUM 140 mmol/L (136-145); UREA NITROGEN, BLOOD 50 mg/dL (7-18)
[2018-12-12 16:22] LABS: APPEARANCE,URINE CLEAR (CLEAR); BILIRUBIN,URINE NEGATIVE (NEGATIVE); BLOOD, URINE NEGATIVE (NEGATIVE); COLOR,URINE YELLOW (YELLOW); LEUKOCYTE ESTERASE ,URINE NEGATIVE (NEGATIVE); NITRITE, URINE NEGATIVE (NEGATIVE); UGLUCOSE NEGATIVE (NEGATIVE)
[2018-12-12 16:30] LABS: ALBUMIN 3.3 g/dL (3.4-5.0); ASPARTATE AMINOTRANSFERASE 18 U/L (15-37); TOTAL BILIRUBIN 0.4 mg/dL (0.0-1.0)
--- NOTE | 2018-12-12 16:36 | NUR ---
CHECKED ON PT. RESTING COMFORTABLY IN HIS BED.
--- NOTE | 2018-12-12 17:38 | NUR ---
7710----SECOND CALL PLACED FOR FOLLOW UP. DR. RUIZ WILL CALL BACK
[2018-12-12] MEDS ORDERED: HYDROcodone/APAP 5/325 MG 1 TAB TAB PO PRN (17:55)
[2018-12-12] MEDS ORDERED: ONDANSETRON 4 MG/2 ML VIAL IVP PRN (17:55)
[2018-12-12] MEDS ORDERED: INSULIN LISPRO SLIDING SCALE 100 UNITS/ML VIAL SUBQ PRN (17:55)
[2018-12-12] MEDS ORDERED: ACETAMINOPHEN 325 MG TAB PO PRN (17:55)
[2018-12-12] MEDS ORDERED: DEXTROSE 50% 50 ML SYR IVP PRN (17:55)
[2018-12-12] MEDS ORDERED: LORazepam 2 MG/ML VIAL IVP PRN (17:55)
[2018-12-12 19:20] VITALS: BP 189/69
--- NOTE | 2018-12-12 19:20 | NUR ---
Patient will be admitted to care of [facility]. Admited to tele. Will go to room 114. Belongings list completed. Report to bernadine lehman.
--- NOTE | 2018-12-12 19:20 | NUR ---
PT BROUGHT UP BY FER AT 1920, PT TRANSFERRED TO ROOM 114. REPORT GIVEN BY CINTHYA LAN AT BEDSIDE, PT IN STABLE CONDITION.
--- NOTE | 2018-12-12 20:00 | NUR ---
PT IN BED HE IS AOX1 AND NON VERBAL . PT WILL CALL OUT FOR MOM AT TIMES. HE HAS A LISSA CATH ON LEFT UPPER CHEST INTACT AND DRESSED. SKIN IS DRY BUT INTACT. MRSA SWAB DONE, V/S FOLLOWS T 97.8 P 76 R 18 B/P 189/69 02 IS 99% ON ROOM AIR. WILL CALL ON [facility] FOR PRN ORDERS FOR ELEVATED B/P. PT TURNED AND REPOSITIONED WELL PLACED ON FALLS PRECAUTIONS.
[2018-12-12] MEDS ORDERED: NON-FORMULARY ITEM (Lactulose 10 GM) PO SCH (21:00)
[2018-12-12] MEDS: BLOOD GLUCOSE MONITORING 1 DEV DEV FS SCH (21:00)
--- NOTE | 2018-12-12 21:00 | NUR ---
PT IS SALINE LOCKED AND RESTRICTED FLUIDS DUE TO HX OF ESRD. PT GIVEN ORDERED MEDICATIONS OF DEPAKOTE SPRINKLES, KEPPRA , LIPITOR AND LACTULOSE BY MOUTH. CALL PLACED TO PULMONARY INVESTOR RELATIONS COORDINATOR SERVICE AWAITING INVESTOR RELATIONS COORDINATOR MD JOSEPH JOSEPH AND WAITING FOR RETURN CALL.
[2018-12-12] MEDS: LACTULOSE 20 GM/30 ML UDC PO SCH (21:20)
[2018-12-12] MEDS: DIVALPROEX SPRINKLES 125 MG CAPDR PO SCH (21:21)
[2018-12-12] MEDS: levETIRAcetam 100 MG/ML ORASYR PO SCH (21:22)
[2018-12-12] MEDS: ATORVASTATIN 20 MG TAB PO SCH (21:23)
--- NOTE | 2018-12-12 22:00 | NUR ---
MD RETURNED PAGE AND ORDERED IVP/PRN HYDRALAZINE 10MG IVP Q4HRS PRN FOR SBP OVER 160. B/P RETAKEN AND IT WAS 189/72, PT GIVEN IVP PRN HYDRALAZINE ORDER. FINGERSTICK IS 106 NO COVERAGE NEEDED. PT TURNED, CHANGED AND REPOSITIONED.
[2018-12-12] MEDS: hydrALAZINE 20 MG/ML VIAL IVP PRN (22:02)
[2018-12-12] MEDS: MORPHINE SULFATE 2 MG/ML SYR IVP PRN (22:51)
[2018-12-12] MEDS: ALBUTEROL 0.083% 2.5 MG/3 ML NEBU IH SCH (23:01)
[2018-12-13] VITALS: BP 169/72
--- NOTE | 2018-12-13 | NUR ---
PT IN BED SLEEPING BUT AROUSABLE TO NAME. PT VERBALIZED THAT DR. POLA TRISTAN MD WAS HERE ,AND THAT HE WANTED HIM TO STAY THE NIGHT, BUT HE WILL BE BACK TOMORROW TO REEVALUATE PT. PT V/S FOLLOWS T 97.4 P 52 R 18 B/P 125/78 02 99% ON ROOM AIR. NO S/S OF PAIN OR DISTRESS NOTED,. PT GIVEN ORDERED [facility] WELL PT EDUCATION. 1:1 SITTER AT BEDSIDE. Addendum: 12/13/18 at 0057 by Dary Esqueda RN WRONG CHART PLEASE DISREGARD NOTATION
--- NOTE | 2018-12-13 00:10 | NUR ---
PT IN LOW BED HE WAS TURNED AND REPOSITIONED. V/S FOLLOWS T 97.2 P 100 R 18 B/P 175/78 02 98% ON ROOM AIR.
[2018-12-13] MEDS: ALBUTEROL 0.083% 2.5 MG/3 ML NEBU IH SCH ×4 (01:57→19:56)
[2018-12-13] MEDS: hydrALAZINE 20 MG/ML VIAL IVP PRN ×2 (02:45→23:56)
--- NOTE | 2018-12-13 02:48 | NUR ---
RECHECK OF B/P IS 169/72, IVP PRN HYDRAZINE FOR HTN (SBP OVER 160). WILL CONTINUE TO MONITOR FO4R HTN. PT IN BED SLEEPING NO S/S OF PAIN OR DISTRESS NOTED.ALL FALLS AND SEIZURE PRECAUTIONS NI PROGRESS.
[2018-12-13] MEDS: MORPHINE SULFATE 2 MG/ML SYR IVP PRN ×2 (05:02→18:40)
[2018-12-13] MEDS: BLOOD GLUCOSE MONITORING 1 DEV DEV FS SCH ×4 (05:34→20:31)
--- NOTE | 2018-12-13 07:15 | NUR ---
RECEIVED BEDSIDE REPORT FROM MEDICAID SPECIALIST NURSE, PT IS AWAKE, BUT NOT ALERT/ORIENTED. PT IS APHASIC. NO S/S OF ANY ACUTE DISTRESS NOTED. PT IS ON ROOM AIR, SKIN INTACT. IV SITE IS ON THE L HAND 22 G, SALINE LOCKED. TRE CATH NOTED ON THE L CHEST. FALL PRECAUTIONS ARE IN PLACE. CALL LIGHT IS WITHIN REACH, WILL CONTINUE TO MONITOR.
--- NOTE | 2018-12-13 07:32 | NUR ---
ENDORSED POC TO JUAN DANIEL RN DAYSHIFT NURSE AT BEDSIDE, PT IN STABLE CONDITION.
[2018-12-13 08:00] VITALS: BP 177/78
[2018-12-13] MEDS: POLYETHYLENE GLYCOL 17 GM/PKT PO SCH (08:41)
[2018-12-13] MEDS: levETIRAcetam 100 MG/ML ORASYR PO SCH ×4 (08:41→20:33)
[2018-12-13] MEDS: ASPIRIN 81 MG TAB.CHEW PO SCH (08:42)
[2018-12-13] MEDS: DIVALPROEX SPRINKLES 125 MG CAPDR PO SCH ×2 (08:42→20:33)
[2018-12-13] MEDS: VIT-B COMP/VIT-C/FOLIC ACID 1 TAB PO SCH (08:42)
[2018-12-13] MEDS: LISINOPRIL 5 MG TAB PO SCH (08:42)
[2018-12-13] MEDS: PANTOPRAZOLE 40 MG TABEC PO SCH (08:42)
[2018-12-13] MEDS: cloNIDine 0.1 MG TAB PO SCH ×3 (08:43→17:00)
--- NOTE | 2018-12-13 08:58 | NUR ---
ADMINISTERED SCHEDULED AM MEDS ORDERED, CRUSHED IN APPLE SAUCE. PT WAS ABLE TO SWALLOW THE MEDICINE WITH THE APPLE SAUCE, BUT THEN STARTED TO COUGH AND GAG. HOB WAS ELEVATED, PT STABILIZED. CHARGE NURSE IS AWARE, DR WESLEY JOSEPH.
[2018-12-13] MEDS ORDERED: NON-FORMULARY ITEM (Esomeprazole Magnesium* (Nexium*) 1 CAP) PO SCH (09:00)
[2018-12-13] MEDS ORDERED: MULTIVITAMIN WITH MINERALS PO SCH (09:00)
[2018-12-13] MEDS ORDERED: LISINOPRIL 5 MG NG SCH (09:00)
--- NOTE | 2018-12-13 09:05 | NUR ---
DR OLSON CALLED BACK, HE IS ORDERING AN NG TUBE INSERTION AND A SWALLOW EVALUATION.
--- NOTE | 2018-12-13 09:18 | NUR ---
VLADIMIR MARTIN NOTIFIED OF PT'S DIALYSIS ODER FOR TODAY.
--- NOTE | 2018-12-13 10:05 | NUR ---
NG TUBE INSERTED, CXR ORDERED TO CONFIRM PLACEMENT. Addendum: 12/13/18 at 1045 by Rachel Sheldon RN SOFT WRIST RESTRAINT PLACED ON L HAND DUE TO PT PULLING ON NG TUBE. FAMILY NOTIFIED
--- NOTE | 2018-12-13 11:10 | NUR ---
PT'S BP IS 131/60 AT THIS TIME
--- NOTE | 2018-12-13 11:12 | NUR ---
PT SEEN BY DR OLSON
[2018-12-13] MEDS: BRIMONIDINE TARTRATE 0.2% OP 5 ML BTL OP SCH ×3 (11:40→17:00)
--- NOTE | 2018-12-13 11:56 | NUR ---
PT HAS A G-TUBE, NG TUBE DISCONTINUED. DR OLSON AND CHARGE NURSE ARE AWARE. Addendum: 12/13/18 at 1254 by Rachel Sheldon RN G-TUBE IS INTACT AND PATENT. MINIMAL RESIDUAL (<5 ML)
[2018-12-13 12:00] VITALS: BP 132/60
--- NOTE | 2018-12-13 12:54 | NUR ---
TUBE FEEDING HUNG AND INFUSING PER MD ORDER.
--- NOTE | 2018-12-13 14:34 | NUR ---
Discharge Planning: SEBASTIÁN faxed clinicals to [facility]. SEBASTIÁN contacted [facility] and spoke to Samaria. Samaria stated that Track Mechanic Ronny was not available and that she would have him return call to SEBASTIÁN. SEBASTIÁN/DANIEL will follow up.
--- NOTE | 2018-12-13 14:54 | NUR ---
[facility]charge Planning: [phone]. Ronny stated that transportation would be arranged for patient for 8:00PM. Patient will be returning to room 110B and will be under attending physician Dr. Elliott. SEBASTIÁN/DANIEL will follow up as needed. Addendum: 12/13/18 at 1518 by Philippe Miner [facility]# [phone]
--- NOTE | 2018-12-13 16:01 | NUR ---
NARES SWABBED AND TAKEN TO LAB FOR MRSA CULTURE
[2018-12-13 16:06] LABS: BASOPHILS % (AUTO) 0.2 % (0.0-2.0); EOSINOPHILS % (AUTO) 0.1 % (0.0-4.0); HEMATOCRIT 29.2 % (36-52); HEMOGLOBIN 9.9 g/dL (12.0-18.0); LYMPHOCYTES # (AUTO) 1.2 K/uL (2.0-11.5); LYMPHOCYTES % (AUTO) 13.6 % (20.5-51.1); MEAN CORPUSCULAR HEMOGLOBIN 33 pg (27-31); MEAN CORPUSCULAR HGB CONC 34 g/dL (33-37); MEAN CORPUSCULAR VOLUME 98.3 fL (80-94); MONOCYTES # (AUTO) 1.2 K/uL (0.8-1.0); MONOCYTES % (AUTO) 13.7 % (1.7-9.3); NEUTROPHILS # (AUTO) 6.5 K/uL (1.8-7.7); NEUTROPHILS % (AUTO) 72.4 % (42.2-75.2); PLATELET COUNT (AUTO) 204 K/uL (140-450); RED BLOOD CELL COUNT(AUTO) 2.97 MIL/uL (4.20-6.10); RED CELL DISTRIBUTION WIDTH 15.5 % (11.6-13.7)
--- NOTE | 2018-12-13 16:19 | NUR ---
PHONE REPORT GIVEN TO JOELLE BROTHERS, AT [facility], FOR PT TRANSFER TONIGHT.
--- NOTE | 2018-12-13 16:20 | NUR ---
PHONE CONSENT OBTAINED FROM PT'S RELATIVE ABDIRAHMAN FOR DIALYSIS TODAY
[2018-12-13 17:21] LABS: CARBON DIOXIDE 30.9 mmol/L (21-32); CHLORIDE 98 mmol/L (98-107); GLUCOSE 157 mg/dL (74-106); POTASSIUM 3.9 mmol/L (3.5-5.1); SODIUM SERUM 140 mmol/L (136-145); UREA NITROGEN, BLOOD 60 mg/dL (7-18)
--- NOTE | 2018-12-13 17:25 | NUR ---
PAGED DR GREENWOOD ABOUT CONSENT FOR PT'S DIALYSIS, DR GREENWOOD SAID THAT HE WILL COME BY [facility] AND WILL SIGN THE CONSENT.
--- NOTE | 2018-12-13 17:30 | NUR ---
PT GETTING DIALYSIS AT THIS TIME
[2018-12-13 17:50] VITALS: BP 129/52
--- NOTE | 2018-12-13 19:27 | NUR ---
PT ENDORSED TO INDOOR LANDSCAPE ARCHITECT IN STABLE CONDITION. INDOOR LANDSCAPE ARCHITECT NURSE IS AWARE TO HAVE DR GREENWOOD SIGN THE DIALYSIS CONSENT.
--- NOTE | 2018-12-13 19:30 | NUR ---
RECEIVED BEDSIDE REPORT DAY RN, PT IS AWAKE. PT IS APHASIC. ON ROOM AIR. RESPIRATIONS ARE EQUAL AND UNLABORED. NO S/S OF ANY ACUTE DISTRESS NOTED. SKIN INTACT. IV SITE IS ON THE L HAND 22 G, SALINE LOCKED. TRE CATH NOTED ON THE L CHEST CURRENTLY RECEIVING HD. FALL PRECAUTIONS ARE IN PLACE. CALL LIGHT IS WITHIN REACH, WILL CONTINUE TO MONITOR.
[2018-12-13 20:00] VITALS: BP 144/58
[2018-12-13] MEDS: LACTULOSE 20 GM/30 ML UDC PO SCH (20:33)
[2018-12-13] MEDS: ATORVASTATIN 20 MG TAB PO SCH (20:33)
--- NOTE | 2018-12-13 20:33 | NUR ---
PATIENTS VITAL SIGNS ARE STABLE:144/58 HR 96 100% ON RA 98.2 RR 17. PT IS APHASIC. BLOOD SUGAR 145 NO COVERAGE NEEDED. ADMINISTERED [place] MEDICATIONS VIA G TUBE. NO RESIDUAL. ALL NEEDS MET. SAFETY MEASURES ARE IN PLACE.
--- NOTE | 2018-12-13 20:40 | NUR ---
DR GREENWOOD IN TO SEE PATIENT. PT IN STABLE CONDITION.
--- NOTE | 2018-12-13 22:00 | NUR ---
PATIENT IS SLEEPING COMFORTABLY IN BED. CHEST RISE AND FALL. SAFETY MEASURES ARE IN PLACE. WILL CONTINUE TO MONITOR.
--- NOTE | 2018-12-13 23:00 | NUR ---
CALLED [facility] REGARDING TRANSPORTATION FOR PT. TALKED WITH ZOHREH STATES SHE WILL CALL AND FIGURE OUT WHY THEY HAVEN'T PICKED UP PT AND CALL ME BACK.
--- NOTE | 2018-12-13 23:22 | NUR ---
[facility] ARRANGED TRANSPORTATION WITH [facility]. ROSMERY CALLED AND THEY TOLD HIM THEY DIDN'T GET THE AUTHORIZATION SO TRANSPORTATION WAS NOT ARRANGE. IT IS NOW TO LATE TO ARRANGE. ROSMERY WILL CALL THEM TOMORROW AT 0700 TO ARRANGE THE TRANSPORTATION.
--- NOTE | 2018-12-13 23:28 | NUR ---
PAGED DR HEDRICK. CALLED BACK AND IS AWARE PT WILL SPEND NIGHT AND BE D/C TOMORROW.
[2018-12-14] VITALS: BP 171/90
--- NOTE | 2018-12-14 | NUR ---
B/P ELEVATED 171/90 HR 97 ADMINISTERED PRN HYDRALAZINE. ALL SAFETY MEASURES ARE IN PLACE. WILL CONTINUE TO MONITOR.
[2018-12-14 01:00] VITALS: BP 145/62
[2018-12-14] MEDS: ALBUTEROL 0.083% 2.5 MG/3 ML NEBU IH SCH ×3 (01:00→13:11)
--- NOTE | 2018-12-14 01:00 | NUR ---
B/P REASSESSMENT IS 145/62 HR 102. ALL NEEDS MET AT THIS TIME. RT IS AT BEDSIDE. WILL CONTINUE TO MONITOR.
[2018-12-14] MEDS: MORPHINE SULFATE 2 MG/ML SYR IVP PRN (01:47)
--- NOTE | 2018-12-14 02:30 | NUR ---
PATIENT IS SLEEPING COMFORTABLY IN BED. CHEST RISE AND FALL. NO S/S OF DISTRESS. WILL CONTINUE TO MONITOR.
[2018-12-14 04:00] VITALS: BP 154/79
--- NOTE | 2018-12-14 04:09 | NUR ---
VITAL SIGNS ARE WITHIN NORMAL LIMITS. NO S/S OF DISTRESS. CHEST RISE AND FALL. WILL CONTINUE TO MONITOR.
--- NOTE | 2018-12-14 05:15 | NUR ---
PATIENT WAS BEING REPOSITION WHEN HE VOMITED PER SOCIAL WORKER. WALKED IN TO HELP HER PT WAS OKAY NO S/S OF DISTRESS. CHECKED RESIDUAL 80CC. WILL HOLD FEEDING FOR NOW AND CHECK AGAIN AN 1 HOUR. PT CLEANED AND REPOSITION FOR COMFORT. HOB 45. ALL SAFETY MEASURES ARE IN PLACE. WILL CONTINUE TO MONITOR.
[2018-12-14] MEDS: BLOOD GLUCOSE MONITORING 1 DEV DEV FS SCH ×2 (05:50→11:30)
--- NOTE | 2018-12-14 06:45 | NUR ---
RECHECKED RESIDUAL 70CC. WILL CONTINUE TO HOLD FEEDING AND CHECK IN ANOTHER HOUR. BLOOD SUGAR IS 123. RT IS AT BEDSIDE. SAFETY MEASURES ARE IN PLACE. HOB REMAINS AT 45 DEGREES.
--- NOTE | 2018-12-14 07:16 | NUR ---
GAVE BEDSIDE REPORT TO DAY RN. PT ENDORSED IN STABLE CONDITION.
--- NOTE | 2018-12-14 07:17 | NUR ---
RECEIVED REPORT FROM COOK MORNING NURSE. PATIENT LYING DOWN IN BED SLEEPING, AROUSABLE BY VOICE. NO DISTRESS NOTED. FLACC 0. AAOX1, APHASIC, SKIN COLOR APPROPRIATE TO ETHNICITY, WARM TO TOUCH. SKIN INTACT. HAS GTUBE IN PLACE, PATENT, FEEDING ON HOLD AT THIS TIME D/T HIGH RESIDUALS. IV SITE INTACT, PATENT, AND ON SALINE LOCK. REVIEWED PLAN OF CARE WITH PATIENT. PATIENT VERBALIZED UNDERSTANDING. SAFETY MEASURES IN PLACE, CALL LIGHT WITHIN REACH. WILL CONTINUE TO MONITOR.
[2018-12-14 08:00] VITALS: BP 155/75
--- NOTE | 2018-12-14 08:15 | NUR ---
PATIENT HAS BEEN SCREENED AND CATEGORIZED HIGH NUTRITION RISK. PATIENT WILL BE SEEN WITHIN 1-2 DAYS OF ADMISSION. 12/14/[address]
--- NOTE | 2018-12-14 09:14 | NUR ---
CONTACTED BERNADINE -REGISTERED NURSE STEP DOWN IN [facility] (#[phone]) REGARDING THE TRANSPORTATION ISSUE OF PT SINCE LAST NIGHT. BERNADINE STATED SHE WILL CONTACT [facility] AND WILL CALL US BACK FOR UPDATE. CHARIS ASSIGNED MADE AWARE.
[2018-12-14] MEDS: cloNIDine 0.1 MG TAB PO SCH (09:50)
[2018-12-14] MEDS: DIVALPROEX SPRINKLES 125 MG CAPDR PO SCH (09:50)
[2018-12-14] MEDS: PANTOPRAZOLE 40 MG TABEC PO SCH (09:50)
[2018-12-14] MEDS: VIT-B COMP/VIT-C/FOLIC ACID 1 TAB PO SCH (09:50)
[2018-12-14] MEDS: ASPIRIN 81 MG TAB.CHEW PO SCH (09:50)
[2018-12-14] MEDS: LISINOPRIL 5 MG TAB PO SCH (09:50)
[2018-12-14] MEDS: BRIMONIDINE TARTRATE 0.2% OP 5 ML BTL OP SCH (09:51)
[2018-12-14] MEDS: POLYETHYLENE GLYCOL 17 GM/PKT PO SCH (09:51)
[2018-12-14] MEDS: levETIRAcetam 100 MG/ML ORASYR PO SCH (09:51)
--- NOTE | 2018-12-14 10:04 | NUR ---
PATIENT LYING DOWN IN BED COMFORTABLY. NO DISTRESS NOTED. SCHEDULED MEDICATIONS DUE GIVEN. WILL CONTINUE TO MONITOR.
[2018-12-14 12:00] VITALS: BP 153/71
--- NOTE | 2018-12-14 12:00 | NUR ---
PATIENT LYING DOWN IN BED COMFORTABLY. NO DISTRESS NOTED. CONDITION UNCHANGED. WILL CONTINUE TO MONITOR.
--- NOTE | 2018-12-14 14:10 | NUR ---
DISCHARGE INSTRUCTIONS PROVIDED TO PATIENT REGARDING TRANSFER BACK TO [facility]. UNABLE TO COMPREHEND. REPORT GIVEN TO RIKY HIGH AT [facility]. ANSWERED ALL HER QUESTIONS REGARDING TRANSFER AND NOTIFIED HER THAT [facility] WAS ON THE UNIT TO TAKE THE PATIENT. LENNOX VERBALIZED UNDERSTANDING AND AWAITING FOR PATIENT TO ARRIVE. CALLED NISHERRI PETER AND SISTER IN LAW ABDIRAHMAN TO LET THEM KNOW THAT PATIENT IS BEING TRANSFERRED TO [facility] TODAY. LEFT MESSAGES FOR BOTH NO ANSWER WHEN CALLING THEM. [facility] TRANSPORT ON UNIT TO TAKE PATIENT TO [facility]. ALL BELONGINGS WITH PATIENT. IV SITE REMOVED WITH MINIMAL BLOOD AND LUMEN COMPLETELY INTACT. ID BANDS REMOVED. PATIENT TRANSFERRED TO [facility] AT THIS TIME IN STABLE CONDITION.
== END 2018-12-14 14:10 | DRG 470 ==
LOC: MED 12:21 → MTU 17:58 → OBSVTOIN 12-13 11:12
PROVIDERS: ADMIT Internal Medicine Pulmonary Disease; ATTEND Internal Medicine Pulmonary Disease
PROC: 5A1D70Z Performance of Urinary Filtration, Intermittent, Less than 6 Hours Per Day (ICD-10-PCS; principal; 2018-12-13)
DX: I12.0 Hypertensive chronic kidney disease with stage 5 chronic kidney disease or end stage renal disease (principal); E11.21 Type 2 diabetes mellitus with diabetic nephropathy; I69.351 Hemiplegia and hemiparesis following cerebral infarction affecting right dominant side; N18.6 End stage renal disease; F03.90 Unspecified dementia, unspecified severity, without behavioral disturbance, psychotic disturbance, mood disturbance, and anxiety; E11.22 Type 2 diabetes mellitus with diabetic chronic kidney disease; Z93.1 Gastrostomy status; Z99.2 Dependence on renal dialysis
CPT/HCPCS: 99218; 99285; G0378; 36415; 70450; 71045; 74018; 80048; 80053; 81003; 82948; 83605; 84484; 85025; 87040; 87081; 93005; 94640; G0482; J0360; J1815; J2270; J7030; J7613; Q0092